=== PATIENT | female | born 1935 | race Caucasian/White ===

== ENCOUNTER 2018-12-22 11:00 | Inpatient (IN) ==
[2018-12-22] MEDS ORDERED: SODIUM CHLORIDE 0.9% 500 ML IV ONE (11:43)
[2018-12-22] MEDS ORDERED: ACETAMINOPHEN 1,000 MG/100 ML VIAL IV STA (11:43)
[2018-12-22 12:11] LABS: Basophils # (auto) 0.03 K/uL (0-0.2); Basophils % (auto) 0.2 %; Eosinophils # (auto) 0.08 K/uL (0-0.5); Eosinophils % (auto) 0.5 %; Hematocrit (blood only) 35.2 % (37-47); Hemoglobin 12.1 g/dL (12.0-16.0); Immature Granulocytes # (auto) 0.06 K/uL (0.00-0.02); Immature Granulocytes % (auto) 0.4 %; Lymphocytes # (auto) 0.89 K/uL (1.2-3.4); Lymphocytes % (auto) 6.1 %; Mean Corpuscular Hgb Conc 34.4 g/dL (32-36); Mean Corpuscular Volume 99.2 fL (80-100); Mean Platelet Volume 9.3 fL (7.4-10.4); Monocytes # (auto) 0.92 K/uL (0.11-0.59); Monocytes % (auto) 6.3 %; Neutrophils # (auto) 12.68 K/uL (1.4-6.5); Neutrophils % (auto) 86.5 %; Platelet Count 276 K/uL (130-400); RDW Coefficient of Variation 15.3 % (11.5-14.5); RDW Standard Deviation 55.6 fL (36.4-46.3); Red Blood Count 3.55 M/uL (4.2-5.4); White Blood Count 14.66 K/uL (4.8-10.8)
[2018-12-22 12:20] LABS: Prothrombin Time 10.1 Seconds (9.0-12.0)
[2018-12-22 12:27] LABS: Albumin Level 2.5 gm/dl (3.4-5.0); BUN Creatinine Ratio 46.1 (10-20); Calcium 7.5 mg/dl (8.5-10.1); Est GFR (African American) 45.5; Est GFR (Non-African American) 39.3; Potassium 2.9 mmol/L (3.5-5.1)
[2018-12-22 12:43] LABS: Albumin Globulin Ratio 0.6 (0.9-2); Bilirubin,Total 1.4 mg/dl (0.2-1); Globulin 4.4 gm/dl (2.5-4.0); Total Protein 6.9 gm/dl (6.4-8.2); Troponin I 0.052 ng/ml (0-0.045)
--- NOTE | 2018-12-22 12:45 | XRay Report ---
XR chest 1V portable CLINICAL HISTORY: Atypical chest pain COMPARISON STUDY: None FINDINGS: The heart is normal in size. There is no failure. There is no focal pulmonary consolidation . There are no pleural effusions. There are old left-sided rib fractures. There is no pneumothorax.[ IMPRESSION: No active disease in the chest. Electronically signed by: Dontrell Bladeras M.D. 12/22/2018 12:43 PM
[2018-12-22 12:53] LABS: Magnesium 2.6 mg/dl (1.8-2.4); Phosphorus 3.8 mg/dl (2.5-4.9)
--- NOTE | 2018-12-22 13:32 | CT Scan Report ---
CT head/brain wo con CLINICAL HISTORY: left sided weakness COMPARISON STUDY: No previous studies for comparison. TECHNIQUE: Axial CT of the brain is performed from the vertex to the skull base. IV contrast was not administered for this examination. A dose lowering technique was utilized adhering to the principles of ALARA. CT DOSE: 537.48 mGy.cm FINDINGS: No intra or extra-axial mass lesions are visualized. There is no CT evidence of acute cortical infarc tion. There is no evidence of midline shift. There is no acute hemorrhage. No calvarial fractures ar e visualized. There are extensive white matter hypodensities likely on a small vessel basis. There is an old deep w zule[place] matter right periventricular lacunar infarct. There is an old infarct in the right parietal vert ex. There is an old left posterior parietal lobe infarct. There is mild ventricular dilatation, finding which is felt to be secondary to volume loss There is no evidence of acute sinusitis IMPRESSION: 1. No acute intracranial findings 2. 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 12/22/2018 1:31 PM
--- NOTE | 2018-12-22 13:33 | XRay Report ---
XR pelvis 1-2V routine CLINICAL HISTORY: Bilateral hip pain COMPARISON: None. DISCUSSION: The bones are osteopenic. No acute fractures are visualized. There are mild degenerative changes present. No destructive lesions are visualized. There degenerative changes present within the lower lumbar spine. IMPRESSION: No acute fractures identified. Electronically signed by: Dontrell Balderas M.D. 12/22/2018 1:32 PM
[2018-12-22] MEDS ORDERED: POTASSIUM CHLORIDE / WTR 10 MEQ/100 ML PLCT IV STA (13:44)
--- NOTE | 2018-12-22 13:55 | Emergency Department Note ---
Entered by Charisse Mcallister acting as a scribe for Trace Turner MD History of Present Illness General Chief complaint: Pain (Generalized) Stated complaint: back & leg pain Time Seen by Provider: 12/22/18 11:04 Source: patient and other (ED nurse) Mode of arrival: EMS History of Present Illness Onset (ago): hour(s) (this morning) Location: back Pain Consistency: + other (episode) Exacerbated By: + movement Associated symptoms: + other (pain in arms and legs) The patient is a 83 year old female that is presenting to the Emergency Room with complaints of persistent back pain that started earlier today. The patient is reportedly seeking hospice care and lives with her daughter. She was brought to the ED via EMS. According to EMS, the patient had stroke-like symptoms yesterday with new onset left-sided weakness. EMS states that the patient was not brought to the ED at that time as she is self-imposed hospice. EMS reports that the patient started complaining of back, arm, and leg pain this morning and that the hospice nurse could not be reached. EMS notes that the patients daughter decided to take the patient to the ED at this time. EMS states that the patient was found in the basement at the house she is staying in and that it was difficult to get the patient out of her home. The patients ED nurse reports that the patient appeared unkempt upon her arrival to the ED. The nurse states that the patients diaper had not been changed in several days and that it appears that the patient had not been bathed in some time. Her nurse noted that the patients skin was red and purple on her left side and that it appeared that the patient had not been moved for a significant period of time. The patient reports that she has significant pain in her back and legs. She notes that she has difficulty moving her arms and legs. She states that she had a stroke around one month ago and denies any knowledge of stroke-like symptoms yesterday. The patient does not appear sure of why she is in hospice care. She states that she has a history of falls but denies any recent falls. The patient is able to state her current location and her name. Home Medications Home Medications Medication Instructions Recorded Confirmed Type carbidopa-levodopa 1 tab PO BID 12/22/18 12/22/18 History gabapentin 100 mg PO TID 12/22/18 12/22/18 History lorazepam 1 mg PO TID PRN 12/22/18 12/22/18 History tramadol 50 mg PO Q6H PRN 12/22/18 12/22/18 History Allergies Allergy/AdvReac Type Severity Reaction Status Date / Time Unable to Assess Allergy Unverified 12/22/18 12:43 Past Med/Surg History Medical History Celiac disease (Chronic) Parkinsons (Chronic) History of hysterectomy Surgical History Cataract extraction status Family History Other Family history unobtainable Social History Preferred Language: Dominican Communication Ability: Effective 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 and A total of 10 systems reviewed and were otherwise negative Physical Exam Vital Signs Vital Signs - 24 hr 12/22/18 11:00 12/22/18 11:56 12/22/18 12:00 Temperature 36.4 C L Temperature Source Oral Sepsis Recent Fever Within 48 Hours No Sepsis New/Unexplained Change in Mental Status No Sepsis Action Taken by Nursing No Action Required Pulse Rate 87 79 Pulse Rate [Finger] 87 82 Pulse Rate from SpO2 Sensor 79 Pulse Rhythm Regular Respiratory Rate 16 22 22 Respiratory Effort / Characteristics Non-Labored Spontaneous Non-Labored Spontaneous Respiratory Depth Normal Normal Respiratory Pattern Regular Regular Blood Pressure 124/70 156/81 H Blood Pressure [Right Arm] 124/70 156/81 H Blood Pressure Mean 88 106 Blood Pressure Mean [Right Arm] 88 106 Blood Pressure Position Lying Blood Pressure Position [Right Arm] Lying Lying Pulse Oximetry 94 95 95 Oxygen Delivery Method Room Air Room Air 12/22/18 12:10 12/22/18 12:30 12/22/18 12:33 Temperature Temperature Source Sepsis Recent Fever Within 48 Hours Sepsis New/Unexplained Change in Mental Status Sepsis Action Taken by Nursing Pulse Rate 80 79 Pulse Rate [Finger] 76 Pulse Rate from SpO2 Sensor 80 79 Pulse Rhythm Respiratory Rate 24 24 22 Respiratory Effort / Characteristics Non-Labored Spontaneous Respiratory Depth Normal Respiratory Pattern Regular Blood Pressure Blood Pressure [Right Arm] Blood Pressure Mean Blood Pressure Mean [Right Arm] Blood Pressure Position Blood Pressure Position [Right Arm] Pulse Oximetry 95 96 95 Oxygen Delivery Method Room Air 12/22/18 13:00 12/22/18 13:32 12/22/18 14:00 Temperature Temperature Source Sepsis Recent Fever Within 48 Hours Sepsis New/Unexplained Change in Mental Status Sepsis Action Taken by Nursing Pulse Rate Pulse Rate [Finger] 81 74 72 Pulse Rate from SpO2 Sensor Pulse Rhythm Respiratory Rate 22 20 20 Respiratory Effort / Characteristics Non-Labored Spontaneous Non-Labored Spontaneous Non-Labored Spontaneous Respiratory Depth Normal Normal Normal Respiratory Pattern Regular Regular Regular Blood Pressure Blood Pressure [Right Arm] 120/83 120/83 118/68 Blood Pressure Mean Blood Pressure Mean [Right Arm] 95 95 84 Blood Pressure Position Blood Pressure Position [Right Arm] Lying Lying Lying Pulse Oximetry 96 95 94 Oxygen Delivery Method Room Air Room Air Room Air GENERAL: Awake, alert, chronically ill-appearing, in no distress HENT: Normocephalic, atraumatic. Oropharynx with dry mucous membranes and otherwise unremarkable. EYES: Normal conjunctiva. Sclera non-icteric. EOMI. No nystamgus. PEARRL. NECK: Supple. No nuchal rigidity. FROM. No JVD. RESPIRATORY: Clear to auscultation bilaterally. CARDIAC: Regular rate, normal rhythm. Extremities warm and well perfused. Pulses equal. ABDOMEN: Soft, non-distended. No tenderness to palpation. No rebound or guarding. No masses. RECTAL: Deferred. MUSCULOSKELETAL: Chest examination reveals no tenderness. The back is symmetrical on inspection without obvious abnormality. No midline CTL spine ttp or step offs. There is no CVA tenderness to palpation. No joint edema or deformity. LOWER EXTREMITIES: Calves are equal size bilaterally and non-tender. No edema. No discoloration. NEURO: Normal sensorium. No sensory or motor deficits noted. 3/5 strength in left upper and left lower extremities. 4/5 strength in right upper and right lower extremities. SKIN: No rash or jaundice noted. Course 1129:The patient was evaluated in room C07. A complete history and physical examination was performed. 1300: I discussed the patients case with case management who stated that the patients daughter has been trying to get her mother signed up for [facility] despite not having a sufficient diagnosis from a provider. Case Management stated that the patient has not bene to see a provider in over 7 months. [facility] informed the daughter that they could not accept the patient into their care without a diagnosis and recommendation from a provider, and they recommended that the daughter schedule an appointment. [facility] stated that the daughter asked for pain medications for the patient, but they declined this request as the patient is not in their care. Case Management recommended that the patient be kept at the hospital for further evaluation and care as the patients daughter has been struggling to care for her mother. 1303: I discussed the patients case with the patients daughter (Arleth Norman, ) at this time over the phone regarding the patients recent medical course and her attempts to get the patient into hospice care. The patients daughter admittedly is poorly informed about the process. 1345: I reevaluated the patient at this time. She stated that she would like to limit her care but notes that she amenable to staying in the hospital to discuss possible retirement care options. 1351: I discussed the patient's case with Janna Montana, who will evaluate the patient for further management and care. Consultations Consultation #1: I discussed the patient's case with Janna Montana, who will evaluate the patient for further management and care. Time: 13:51 Administered Medications Gadobutrol (Gadavist 7.5ml) 6 ml IV ONCE PRN PRN Reason: Interaction Checking Stop: 12/26/18 17:27 Last Admin: 12/22/18 17:29 Dose: 6 ml Documented by: [id number] Potassium Chloride 40 meq/ (Sodium Chloride) 1,020 mls @ 100 mls/hr IV .[id number] BHARAT Stop: 12/23/18 12:28 Last Admin: 12/22/18 17:49 Dose: 100 mls/hr Documented by: [id number] Discontinued Medications Acetaminophen (Ofirmev) 1,000 mg in 100 mls @ 400 mls/hr IV NOW STA Stop: 12/22/18 11:57 Last Infusion: 12/22/18 12:10 Dose: 0 mls/hr Documented by: [id number] Admin: 12/22/18 11:59 Dose: 400 mls/hr Documented by: [id number] Sodium Chloride (Nss) 500 mls @ 999 mls/hr IV .[id number] ONE Stop: 12/22/18 12:13 Last Infusion: 12/22/18 12:30 Dose: 0 mls/hr Documented by: [id number] Admin: 12/22/18 11:59 Dose: 999 mls/hr Documented by: [id number] Potassium Chloride (K Toribio / Wtr) 10 meq in 100 mls @ 100 mls/hr IV NOW STA Stop: 12/22/18 14:43 Last Infusion: 12/22/18 15:27 Dose: 0 mls/hr Documented by: [id number] Admin: 12/22/18 14:27 Dose: 100 mls/hr Documented by: [id number] Potassium Chloride (K Toribio / Wtr) 10 meq in 100 mls @ 100 mls/hr IV Q1H BHARAT Stop: 12/22/18 19:04 Last Admin: 12/22/18 18:08 Dose: Not Given Documented by: [id number] Infusion: 12/22/18 18:07 Dose: 0 mls/hr Documented by: [id number] Admin: 12/22/18 17:50 Dose: 100 mls/hr Documented by: [id number] Medical Decision Making Differential Diagnosis Differential diagnosis: Etiologies such as metabolic, infection, hypo/hyperglycemia, electrolyte abnormalities, cardiac sources, intracerebral event, toxicologic, neurologic, as well as others were entertained. Medical Records Attestation: I reviewed the patient's medical records. Home Medications Current Medication List: was personally reviewed by me Laboratory Data Attestation: I reviewed the patient's lab results. Result diagrams: 12/22/18 12:02 12/22/18 12:02 Lab Results 12/22/18 12/22/18 12/22/18 Range/Units 12:02 12:02 12:02 WBC 14.66 H (4.8-10.8) K/uL RBC 3.55 L (4.2-5.4) M/uL Hgb 12.1 (12.0-16.0) g/dL Hct 35.2 L (37-47) % MCV 99.2 (80-100) fL MCH 34.1 H (25-34) pg MCHC 34.4 (32-36) g/dL RDW Std Deviation 55.6 H (36.4-46.3) fL RDW Coeff of Matilde 15.3 H (11.5-14.5) % Plt Count 276 (130-400) K/uL MPV 9.3 (7.4-10.4) fL Immature Gran % (Auto) 0.4 % Neut % (Auto) 86.5 % Lymph % (Auto) 6.1 % [place] % (Auto) 6.3 % Eos % (Auto) 0.5 % Baso % (Auto) 0.2 % Immature Gran # (Auto) 0.06 H (0.00-0.02) K/uL Neut # (Auto) 12.68 H (1.4-6.5) K/uL Lymph # (Auto) 0.89 L (1.2-3.4) K/uL [place] # (Auto) 0.92 H (0.11-0.59) K/uL Eos # (Auto) 0.08 (0-0.5) K/uL Baso # (Auto) 0.03 (0-0.2) K/uL PT 10.1 (9.0-12.0) Seconds INR 1.0 (0.9-1.1) Sodium 139 (136-145) mmol/L Potassium 2.9 L (3.5-5.1) mmol/L Chloride 100 (98-107) mmol/L Carbon Dioxide 29 (21-32) mmol/L Anion Gap 10.0 (3-11) BUN 59 H (7-18) mg/dl Creatinine 1.27 H (0.6-1.2) mg/dl Est Cr Clr Drug Dosing 32.0 ml/min Est GFR ( Amer) 45.5 Est GFR (Non-Af Amer) 39.3 BUN/Creatinine Ratio 46.1 H (10-20) Glucose 106 H (70-99) mg/dl Calcium 7.5 L (8.5-10.1) mg/dl Phosphorus (2.5-4.9) mg/dl Magnesium (1.8-2.4) mg/dl Total Bilirubin 1.4 H (0.2-1) mg/dl AST 23 (15-37) U/L ALT 13 (12-78) U/L Alkaline Phosphatase 42 L (45-117) U/L Total Creatine Kinase (26-192) U/L Troponin I 0.052 H* (0-0.045) ng/ml Total Protein 6.9 (6.4-8.2) gm/dl Albumin 2.5 L (3.4-5.0) gm/dl Globulin 4.4 H (2.5-4.0) gm/dl Albumin/Globulin Ratio 0.6 L (0.9-2) Lipase 382 (73-393) U/L 12/22/18 12/22/18 Range/Units 12:02 12:02 WBC (4.8-10.8) K/uL RBC (4.2-5.4) M/uL Hgb (12.0-16.0) g/dL Hct (37-47) % MCV (80-100) fL MCH (25-34) pg MCHC (32-36) g/dL RDW Std Deviation (36.4-46.3) fL RDW Coeff of Matilde (11.5-14.5) % Plt Count (130-400) K/uL MPV (7.4-10.4) fL Immature Gran % (Auto) % Neut % (Auto) % Lymph % (Auto) % [place] % (Auto) % Eos % (Auto) % Baso % (Auto) % Immature Gran # (Auto) (0.00-0.02) K/uL Neut # (Auto) (1.4-6.5) K/uL Lymph # (Auto) (1.2-3.4) K/uL [place] # (Auto) (0.11-0.59) K/uL Eos # (Auto) (0-0.5) K/uL Baso # (Auto) (0-0.2) K/uL PT (9.0-12.0) Seconds INR (0.9-1.1) Sodium (136-145) mmol/L Potassium (3.5-5.1) mmol/L Chloride (98-107) mmol/L Carbon Dioxide (21-32) mmol/L Anion Gap (3-11) BUN (7-18) mg/dl Creatinine (0.6-1.2) mg/dl Est Cr Clr Drug Dosing ml/min Est GFR ( Amer) Est GFR (Non-Af Amer) BUN/Creatinine Ratio (10-20) Glucose (70-99) mg/dl Calcium (8.5-10.1) mg/dl Phosphorus 3.8 (2.5-4.9) mg/dl Magnesium 2.6 H (1.8-2.4) mg/dl Total Bilirubin (0.2-1) mg/dl AST (15-37) U/L ALT (12-78) U/L Alkaline Phosphatase (45-117) U/L Total Creatine Kinase 138 (26-192) U/L Troponin I (0-0.045) ng/ml Total Protein (6.4-8.2) gm/dl Albumin (3.4-5.0) gm/dl Globulin (2.5-4.0) gm/dl Albumin/Globulin Ratio (0.9-2) Lipase (73-393) U/L Imaging Data Radiologist's Impression: Radiology results as stated below per my review and the radiologist's interpretation: XR chest 1V portable CLINICAL HISTORY: Atypical chest pain COMPARISON STUDY: None FINDINGS: The heart is normal in size. There is no failure. There is no focal pulmonary consolidation. There are no pleural effusions. There are old left- sided rib fractures. There is no pneumothorax.[ IMPRESSION: No active disease in the chest. Electronically signed by: Dontrell Balderas M.D. 12/22/2018 12:[address] head/brain wo con CLINICAL HISTORY: left sided weakness COMPARISON STUDY: No previous studies for comparison. TECHNIQUE: Axial CT of the brain is performed from the vertex to the skull base. IV contrast was not administered for this examination. A dose lowering technique was utilized adhering to the principles of ALARA. CT DOSE: 537.48 mGy.cm FINDINGS: No intra or extra-axial mass lesions are visualized. There is no CT evidence of acute cortical infarction. There is no evidence of midline shift. There is no acute hemorrhage. No calvarial fractures are visualized. There are extensive white matter hypodensities likely on a small vessel basis. There is an old deep white matter right periventricular lacunar infarct. There is an old infarct in the right parietal vertex. There is an old left posterior parietal lobe infarct. There is mild ventricular dilatation, finding which is felt to be secondary to volume loss There is no evidence of acute sinusitis IMPRESSION: 1. No acute intracranial findings 2. 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 12/22/2018 1:31 PM XR pelvis 1-2V routine CLINICAL HISTORY: Bilateral hip pain COMPARISON: None. DISCUSSION: The bones are osteopenic. No acute fractures are visualized. There are mild degenerative changes present. No destructive lesions are visualized. There degenerative changes present within the lower lumbar spine. IMPRESSION: No acute fractures identified. Electronically signed by: Dontrell Balderas M.D. 12/22/2018 1:32 PM ECG Data Attestation: I personally reviewed and interpreted this ECG as follows: Indication: back/shoulder pain Rate (beats per minute): 82 Rhythm: normal sinus Findings: + other (LVH with repolarization abnormality); no ST depression, no ST elevation and no acute ischemic change Comparison ECG Date: no prior available Blood Pressure Blood Pressure Findings: Normal blood pressure MDM Narrative The patient is a pleasant 83-year-old woman with a past medical history of Parkinson's who presents emergency department via ambulance from home after being called to the patient's home for worsening diffuse body pain which occurs in the setting of having recent stroke like episode with subsequent residual left-sided weakness 2 days ago per hpi. Thus, given sx occurred 2 days ago, no indication for stroke alert at this time. Of note, the patient's presentation occurs in the setting of the patient's daughter attempting to have her in enrolled into hospice care as the daughter reports that the patient, over the last 6 months, has decided she does not not want any invasive treatments. Our assistant case manager did discuss the patient's care with [facility] and they reported that the patient's daughter did in fact contact them to help arrange hospice care however they report that they did inform the daughter that the patient would require a medical evaluation to confirm a diagnosis to help inform whether the patient meets criteria for hospice care. On arrival the patient is chronic ill-appearing but no acute distress, afebrile stable vital signs. On exam the patient does exhibit left-sided paresis of left upper and left lower extremity when compared to the right. She has a mild left-sided facial droop as well. EKG demonstrates LVH with repolarization abnormality but no overt acute ischemia. Chest x-ray negative for acute process. CT the head demonstrates severe white matter disease and old bilateral cortical infarcts. Plain film of the pelvis negative for acute fracture. WBC 14.6, nonspecific. H/H 12.1/35.2 without prior values for comparison. Platelets within normal limits. Potassium 2.9 with repletion provided. Creatinine 1.27 and BUN 59 without prior values for comparison. Patient's troponin is mildly elevated at 0.05. Lipase within normal limits. UA pending as patient had soiled herself upon arrival. Upon further discussion with the patient's daughter, she admitted that she was not informed regarding the process of hospice. She further admits that she is unable to care for her mother in the her current state but would be open to having her there with regular nursing care if possible. However she adn the patient are agreeable for admission for further clarification of the patient's current medical status and palliative care consultation/goals of care discussion. Case was discussed with Dr. Lira, [facility] hospitalist, who evaluate the patient for admission. Impression & Plan Stroke-like symptoms, Hypokalemia, Dehydration, Failure to thrive Discharge Plan Visit Data *Final* Discharge Date/Time: 12/22/18 15:41 Chief Complaint: Pain (Generalized) Stated Complaint: back & leg pain ED Provider: Trace Turner Discharge Problem: Stroke-like symptoms, Hypokalemia, Dehydration, Failure to thrive Patient Disposition: Admitted As Inpatient Discharge Instructions Interventions: ED Discharge Assessment Last Done: 12/22/18 15:41 Discharge Problem: Failure to thrive Qualifiers: Failure to thrive age range: in adult Qualified Code(s): R62.7 - Adult failure to thrive The scribe's documentation has been prepared under my direction and personally reviewed by me in its entirety. I confirm that the note above accurately reflects all work, treatment, procedures, and medical decision making performed by me.
--- NOTE | 2018-12-22 14:35 | Communication Note ---
Date of Service: December 22, 2018 83 yo F with h/o Parkinson's and reported h/o celiac disease presents via EMS. Chief complaint was back, arm and leg pain with h/o acute onset of L sided weakness within the last couple of days. Per daughter who I was able to reach later, she had moved the patient up to [place] from [place]. In the last 1.5 years she had approx 6 TIA episodes, some were strokes with residual deficits including two weeks ago where she developed a contracture of her R hand, and then most recently, in the last few days, she developed acute LUQ weakness. Daughter reports that she was not going with mom to PCP visits, and doesn't know why she was never worked up for underlying atrial fibrillation or given secondary prophylaxis such as ASA, Plavix or statin therapy. She states that shortly after mom moved to her house in Jun 2018, she became more weak and eventually bedbound by August 2018. Daughter has been caring for her and an autistic son with seizure disorder. She states that after this last "stroke" she was unable to care for mom anymore and her pain was so severe that she reached out to [facility] for help and pain management options, but they dir ected her to see a doctor first, which was what prompted the ER visit today. Daughter describes the episode a couple of days ago where her mom started having full body convulsions for an uncertain amount of time when she was awakening from sleep in the morning. She was unable to communicate with her mom, and states that when the convulsions were done, mom (the patient) was not lucid and just fell back asleep until later that evening. Daughter states that around this event for a few days, mom was very somnolent which was unlike her. The patient is unable to give an accurate detail of events. She is alert and responding appropriately, and is oriented to self, place but not time. She cannot tell me why she is here today, and doesn't know where she is from. She states she is from "here" but has medical bottles on her that are outdated and from [place]. She cannot remember having a stroke. She is very weak and malodorous. Per the ER nurse her backside has extensive redness with no open wounds noted. She is able to follow instructions, and has no ability to move the LUE with only very little active movement of the LLE. Passive ROM is also limited in all extremities but is easier to perform on the R side. Lungs are CTAB and she denies any cough or other respiratory symptoms recently. There is a 3/6 ESTELLA heard across her precordium for which she says she has known about and is chronic. She winces in pain when the BP cuff takes a measurement and appears to be in pain with little movement. She overall appears weak and disabled. She has a history of using Sinemet but only PRN for restless legs syndrome per her daughter. She is a severe celiac with strict gluten free diet. Otherwise, her medical history is unclear. She was seen in the ER at [facility] in May 2018 per daughter, and was told something about having a heart condition, but the daughter cannot elaborate. Records from here and PCP office (Dr. Ambrose in [place]) have been requested. Assessment: stroke-like symptoms with h/o CVD, hypokalemia, memory loss, acute pain possibly related to pressure-induced skin erythema on back. MRI brain negative for acute IC abnormality, carotid us with no HD significant stenosis. Cont with monitoring on telemetry for occult arrhythmia, consult with Neurology, PT/OT and Speech, and perform echo in am. Appreciate Case Management assistance with placement options and Palliative to help us identify treatment goals. DO Pankaj
--- NOTE | 2018-12-22 15:06 | History & Physical Report ---
Date of Service December 22, 2018 Assessment & Plan (1) Left-sided weakness: -admit to tele -patient presenting from home with left sided weakness that reportedly developed a few days ago -patient currently living at home with daughter who has been trying to place her in hospice - attempted to reach daughter to discuss however unsuccessful -will complete work up for possible CVA - MRI, carotid dopplers, echo -neuro checks -NPO until swallow eval completed -neuro consult, input appreciated -palliative care eval for goals of care discussion / hospice eval (2) Hypokalemia: -K+ 2.9 -replace, follow eletrolytes -Mg+ WNL (3) Leukocytosis: -WBC 14K -no obvious sources of infection at this time; awaiting UA -does not appear septic (4) Abnormal renal function: -creat 1.2 -unknown baseline -monitor renal functions (5) Parkinsons: -resume carbidopa/levadopa once taking PO (6) DVT prophylaxis: -SQ Lovenox History of Present Illness Chief Complaint: Weakness Primary Care Provider: YOLANDA TRACEY 83 year old female who presents to the ED with weakness. Patient is currently in the ED alone. According to ED documentation, patient lives with her daughter in the basement. A few days ago, patient developed stroke like symptoms with left sided weakness. An attempt was made to place the patient on hospice however that was unsuccessful. Nursing reports that when patient arrived to the ED, she was disheveled and was soiled. She had a diaper on that appeared to be days old. Patient is somewhat of a poor historian. She is mostly without complaint. She is unsure why she came to the hospital today. In the ED, CT head is negative for acute findings. K+ is 2.9, WBC 14K, creat 1.2, trop 0.052. EKG is without aute ST changes. Patient was given IVF, IV Tylenol, and potassium replacement. Dr. Lira attempted to call patient's daughter however was unable to reach her. Allergies Allergy/AdvReac Type Severity Reaction Status Date / Time Tetracyclines Allergy Unknown Verified 12/22/18 19:02 Home Medications Home Medications Medication Instructions Recorded Confirmed Type Calcium 600 + D(3) 1 ea PO BID 12/22/18 12/22/18 History acetaminophen 500 mg PO BID PRN 12/22/18 12/22/18 History amlodipine 2.5 mg PO DAILY 12/22/18 12/22/18 History carbidopa-levodopa 1 tab PO BID 12/22/18 12/22/18 History gabapentin 100 mg PO TID 12/22/18 12/22/18 History levothyroxine [Synthroid] 88 mcg PO DAILY 12/22/18 12/22/18 History lorazepam 1 mg PO TID PRN 12/22/18 12/22/18 History magnesium oxide 500 mg PO DAILY 12/22/18 12/22/18 History tramadol 50 mg PO Q6H PRN 12/22/18 12/22/18 History Past Med/Surg History Medical History Celiac disease (Chronic) Parkinsons (Chronic) History of hysterectomy Surgical History Cataract extraction status Family History Other Family history unobtainable Social History Preferred Language: Turkish Communication Ability: Effective [employer] Required: No Beliefs That Will Affect Care: None and Anabaptism Anabaptism Beliefs: Protestant marital status: / Current Living Situation: Family Current Living Situation Comment: hospice current occupational status: retired Other Information That Helps Us Care for You: No Feels Safe at Home: Yes and Hesitant to Answer Smoking Status: Never smoker Do You Dip or Chew Tobacco: No ; Second Hand Exposure: No ; Hx Alcohol Use: Yes Alcohol type: wine Hx Substance Use: No Review of Systems Review of Systems: Reviewed with patient as noted in HPI however likely unreliable due to underlying cognitive status. Physical Exam Physical Exam: Please refer to Dr. Lira's addendum for physical exam. Results & Data Vital Signs (Past 12 Hours) Vital Signs Temp Pulse Pulse Resp BP BP Pulse Ox 12/22/18 14:28 79 20 143/83 H 95 12/22/18 14:00 72 20 118/68 94 12/22/18 13:32 74 20 120/83 95 12/22/18 13:00 81 22 120/83 96 12/22/18 12:33 76 22 95 12/22/18 12:30 79 24 96 12/22/18 12:10 80 24 95 12/22/18 12:00 79 22 156/81 H 95 12/22/18 11:56 82 22 156/81 H 95 12/22/18 11:00 36.4 C L 87 87 16 124/70 124/70 94 Laboratory Results Short CBC 12/22/18 Range/Units 12:02 WBC 14.66 H (4.8-10.8) K/uL Hgb 12.1 (12.0-16.0) g/dL Hct 35.2 L (37-47) % Plt Count 276 (130-400) K/uL BMP 12/22/18 12:02 Sodium 139 Potassium 2.9 L Chloride 100 Carbon Dioxide 29 BUN 59 H Creatinine 1.27 H Glucose 106 H Calcium 7.5 L Cardiac Enzymes 12/22/18 12/22/18 Range/Units 12:02 12:02 Total Creatine Kinase 138 (26-192) U/L Troponin I 0.052 H* (0-0.045) ng/ml Liver Function 12/22/18 Range/Units 12:02 Total Bilirubin 1.4 H (0.2-1) mg/dl AST 23 (15-37) U/L ALT 13 (12-78) U/L Alkaline Phosphatase 42 L (45-117) U/L Albumin 2.5 L (3.4-5.0) gm/dl Diagnostic Findings CXR IMPRESSION: No active disease in the chest. HEAD CT IMPRESSION: 1. No acute intracranial findings 2. 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 Code Status & VTE Plan Code Status Patient is a DNR as per Dr. Lira's discussion with the patient. VTE Prophylaxis Plan VTE Prophylaxis will be ordered: Yes Supervising Physician Co-Signing Physician Notes 83 yo F with h/o Parkinson's and reported h/o celiac disease presents via EMS. Chief complaint was back, arm and leg pain with h/o acute onset of L sided weakness within the last couple of days. Per daughter who I was able to reach later, she had moved the patient up to [place] from [place]. In the last 1.5 years she had approx 6 TIA episodes, some were strokes with residual deficits including two weeks ago where she developed a contracture of her R hand, and then most recently, in the last few days, she developed acute LUQ weakness. Daughter reports that she was not going with mom to PCP visits, and doesn't know why she was never worked up for underlying atrial fibrillation or given secondary prophylaxis such as ASA, Plavix or statin therapy. She states that shortly after mom moved to her house in Jun 2018, she became more weak and eventually bedbound by August 2018. Daughter has been caring for her and an autistic son with seizure disorder. She states that after this last "stroke" she was unable to care for mom anymore and her pain was so severe that she reached out to [facility] for help and pain management options, but they directed her to see a doctor first, which was what prompted the ER visit today. Daughter describes the episode a couple of days ago where her mom started having full body convulsions for an uncertain amount of time when she was awakening from sleep in the morning. She was unable to communicate with her mom, and states that when the convulsions were done, mom (the patient) was not lucid and just fell back asleep until later that evening. Daughter states that around this event for a few days, mom was very somnolent which was unlike her. The patient is unable to give an accurate detail of events. She is alert and responding appropriately, and is oriented to self, place but not time. She cannot tell me why she is here today, and doesn't know where she is from. She states she is from "here" but has medical bottles on her that are outdated and from [place]. She knows her PCP to be "Dr Halie ([place])." She cannot remember having a stroke. She is very weak and malodorous. Per the ER nurse her backside has extensive redness with no open wounds noted. She is able to follow instructions, and has no ability to move the LUE with only very little active movement of the LLE. Passive ROM is also limited in all extremities but is easier to perform on the R side. Lungs are CTAB and she denies any cough or other respiratory symptoms recently. There is a 3/6 ESTELLA heard across her precordium for which she says she has known about and is chronic. She winces in pain when the BP cuff takes a measurement and appears to be in pain with little movement. She overall appears weak and disabled. She has a history of using Sinemet but only PRN for restless legs syndrome per her daughter. She is a severe celiac with strict gluten free diet. Otherwise, her medical history is unclear. She was seen in the ER at [facility] in May 2018 per daughter, and was told something about having a heart condition, but the daughter cannot elaborate. Records from here and PCP office (Dr. Ambrose in [place]) have been requested. Assessment: stroke-like symptoms with h/o CVD, hypokalemia, memory loss, acute pain possibly related to pressure-induced skin erythema on back. MRI brain negative for acute IC abnormality, carotid us with no HD significant stenosis. Cont with monitoring on telemetry for occult arrhythmia, consult with Neurology, PT/OT and Speech, and perform echo in am. Appreciate Case Management assistance with placement options and Palliative to help us identify treatment goals. DO Pankaj
[2018-12-22] MEDS ORDERED: PHARMACIST DISCHARGE MED REC CONSULT PRN (16:05)
[2018-12-22] MEDS ORDERED: POTASSIUM CHLORIDE 40 MEQ in SODIUM CHLORIDE 0.9% 1000ML 1,000 ML IV SCH (16:05)
[2018-12-22] MEDS ORDERED: LORazepam 0.5 MG/1 ML VIAL IV PRN (16:05)
--- NOTE | 2018-12-22 17:25 | Ultrasound Report ---
ULTRASOUND OF THE CAROTID ARTERIES CLINICAL HISTORY: left sided weakness COMPARISON STUDY: None. TECHNIQUE: Real-time, grayscale, and color Doppler sonography of the carotid arteries was performed. Imaging reviewed in the transverse and longitudinal planes. NASCET criteria was utilized for stenosis calcification. FINDINGS: There is mild to moderate atherosclerotic plaque present . The peak systolic velocity within the right internal carotid artery is 61 cm/sec. The systolic velocity ratio of right internal to common carotid artery is 1.1. The peak systolic velocity within the left internal carotid artery is 66 cm/sec. The systolic velocity ratio left internal to common carotid artery is 1.2. Antegrade flow is seen in the vertebral arteries. The external carotid arteries are patent. Blood pressure in the right arm measured 127 mm/Hg. Blood pressure in the left arm measured 138 mm/H g. IMPRESSION: No evidence of hemodynamically significant carotid stenosis. Electronically signed by: Dontrell Balderas M.D. 12/22/2018 5:23 PM
[2018-12-22] MEDS ORDERED: GADOBUTROL 7.5ML VIAL IV PRN (17:28)
[2018-12-22] MEDS: POTASSIUM CHLORIDE / WTR 10 MEQ/100 ML PLCT IV SCH ×2 (17:50→18:08)
--- NOTE | 2018-12-22 17:51 | Magnetic Resonance Report ---
MRI OF THE BRAIN WITHOUT AND WITH IV CONTRAST CLINICAL HISTORY: left sided weakness POSSIBLE STROKE COMPARISON STUDY: Noncontrast head CT performed the same day TECHNIQUE: MRI of the brain was performed from the vertex to the skull base utilizing various T1 and T2 weighted sequences. Following the IV administration of 6 mL of Gadavist contrast, additional enhan pamela images were obtained. FINDINGS: Sagittal T1, axial diffusion, proton density and T2 weighted axial, coronal FLAIR, and pre and post a xial T1-weighted images were acquired. These were supplemented with post gadolinium coronal T1 weight ed images. No intra or extra-axial mass lesions are visualized. Axial diffusion-weighted images reveal no evidence of acute or subacute infarction. There is a focus of T2 shine through within the right posterior parietal lobe. A punctate focus of increased signal wi thin the right lateral cerebellar hemisphere is likely artifactual. There is mild ventricular prominence, likely secondary to volume loss. Proton density T2-weighted and FLAIR images reveal extensive foci of abnormal T2 signal within the wh ite matter, likely on a small vessel basis. There is an old left occipital lobe infarct. There is an old right parietal lobe infarct. There is a right sesay radiata deep white matter infarct. There are no abnormal flow voids. There is no evidence of pathologic enhancement. IMPRESSION: 1. No acute intracranial findings 2. No evidence of acute or subacute infarction 3. Extensive small vessel disease 4. 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 12/22/2018 5:50 PM
[2018-12-22] MEDS ORDERED: POTASSIUM CHLORIDE 20 MEQ/15 ML UDC PO ONE ×2 (18:15→23:00)
[2018-12-22 18:53] LABS: Appearance Urine Clear (Clear); Bacteria Urine Automated Negative (Negative); Bilirubin Urine Negative (Negative); Blood Urine 1+ (Negative); Color Urine Yellow; Glucose Urine UA Negative (Negative); Ketones Urine 1+ (Negative); Leukocyte Esterase Urine Negative (Negative); Nitrite Urine Negative (Negative); Protein Urine Trace (Negative); Specific Gravity Urine 1.024 (1.000-1.030); Urobilinogen Urine Negative (Negative)
[2018-12-22] MEDS ORDERED: LORazepam 0.5 MG TAB PO PRN (18:58)
[2018-12-22] MEDS: ENOXAPARIN INJ 40 MG/0.4 ML SYR SQ SCH (19:47)
[2018-12-22] MEDS: GABAPENTIN 100 MG CAP PO SCH (19:48)
[2018-12-22] MEDS: SODIUM CHLORIDE 0.9% 1000ML 1,000 ML IV SCH (19:49)
[2018-12-22] MEDS: CALCIUM 600MG + VIT D 400 IU TAB PO SCH (23:15)
[2018-12-23] MEDS: LEVOTHYROXINE SODIUM 88 MCG TABLET PO SCH (05:49)
[2018-12-23 06:18] LABS: Basophils # (auto) 0.02 K/uL (0-0.2); Basophils % (auto) 0.2 %; Eosinophils % (auto) 0.8 %; Hemoglobin 11.4 g/dL (12.0-16.0); Immature Granulocytes # (auto) 0.05 K/uL (0.00-0.02); Immature Granulocytes % (auto) 0.4 %; Lymphocytes # (auto) 0.92 K/uL (1.2-3.4); Lymphocytes % (auto) 7.5 %; Mean Corpuscular Hgb Conc 32.6 g/dL (32-36); Mean Platelet Volume 9.8 fL (7.4-10.4); Monocytes # (auto) 1.03 K/uL (0.11-0.59); Monocytes % (auto) 8.4 %; Neutrophils # (auto) 10.08 K/uL (1.4-6.5); Neutrophils % (auto) 82.7 %; Platelet Count 261 K/uL (130-400); RDW Coefficient of Variation 15.2 % (11.5-14.5); RDW Standard Deviation 55.3 fL (36.4-46.3)
[2018-12-23 06:58] LABS: BUN Creatinine Ratio 48.5 (10-20); Calcium 7.2 mg/dl (8.5-10.1); Creatinine Clr Calc Pharmacy 44.1 ml/min; Est GFR (African American) 67.2
[2018-12-23] MEDS: TRAMADOL HCL 50 MG TABLET PO PRN ×2 (07:58→18:12)
[2018-12-23] MEDS: CALCIUM 600MG + VIT D 400 IU TAB PO SCH ×2 (07:59→19:49)
[2018-12-23] MEDS: GABAPENTIN 100 MG CAP PO SCH ×3 (08:01→19:49)
[2018-12-23] MEDS: SODIUM CHLORIDE 0.9% 1000ML 1,000 ML IV SCH (08:27)
[2018-12-23] MEDS ORDERED: AMLODIPINE BESYLATE 5 MG TAB PO SCH (09:00)
--- NOTE | 2018-12-23 09:57 | XRay Report ---
XR humerus LT 2V CLINICAL HISTORY: r/o fracture trauma COMPARISON: None. DISCUSSION: The bones and joint spaces appear intact. There is no evidence of fracture, dislocation o r bony disease. There is no evidence for soft tissue swelling. Moderate generalized degenerative archer ge. Old healed fractures left seventh and eighth ribs. Nondisplaced cortical fracture left ninth rib. IMPRESSION: 1. Degenerative change. 2. Nondisplaced cortical fracture left ninth rib. 3. No acute abnormality of the left humerus. The above report was generated using voice recognition software. It may contain grammatical, syntax or spelling errors. Electronically signed by: Jairo Cruz M.D. 12/23/2018 9:55 AM
--- NOTE | 2018-12-23 09:58 | XRay Report ---
XR humerus RT 2V CLINICAL HISTORY: r/o fracture trauma. Pain. COMPARISON: None. DISCUSSION: The bones and joint spaces appear intact. There is no evidence of fracture, dislocation o r bony disease. There is no evidence for soft tissue swelling. IMPRESSION: Negative study. The above report was generated using voice recognition software. It may contain grammatical, syntax or spelling errors. Electronically signed by: Jairo Cruz M.D. 12/23/2018 9:56 AM
--- NOTE | 2018-12-23 09:59 | XRay Report ---
XR shoulder LT min 2V routine CLINICAL HISTORY: r/o fracture trauma COMPARISON: None. DISCUSSION: The bones and joint spaces appear intact. There is no evidence of fracture, dislocation o r bony disease. Moderate generalized degenerative change IMPRESSION: No acute process. Moderate degenerative change. The above report was generated using voice recognition software. It may contain grammatical, syntax or spelling errors. Electronically signed by: Jairo Cruz M.D. 12/23/2018 9:57 AM
--- NOTE | 2018-12-23 10:00 | XRay Report ---
XR lumbar spine 2-3V CLINICAL HISTORY: back pain r/o fracture trauma. Pain. COMPARISON STUDY: No previous studies for comparison. FINDINGS: Generalized degenerative change. Grade 1 anterolisthesis L4 and L5. Slight concavity superior endplate L4 considered nonacute. IMPRESSION: Degenerative change. Mild wedge deformity superior endplate L4 considered old. The above report was generated using voice recognition software. It may contain grammatical, syntax or spelling errors. Electronically signed by: Jairo Cruz M.D. 12/23/2018 9:59 AM
--- NOTE | 2018-12-23 10:01 | XRay Report ---
XR shoulder RT min 2V routine CLINICAL HISTORY: r/o fracture trauma. Pain. COMPARISON: None. DISCUSSION: The bones and joint spaces appear intact. There is no evidence of fracture, dislocation o r bony disease. Moderate generalized degenerative change IMPRESSION: No acute process. Moderate generalized degenerative change. The above report was generated using voice recognition software. It may contain grammatical, syntax or spelling errors. Electronically signed by: Jairo Cruz M.D. 12/23/2018 10:00 AM
--- NOTE | 2018-12-23 10:55 | Hospitalist Progress Note ---
Date of Service December 23, 2018 Assessment & Plan (1) Left-sided weakness: LEFT SIDED WEAKNESS, ACUTE CVA RULED OUT Brain MRI: 1. No acute intracranial findings 2. No evidence of acute or subacute infarction 3. Extensive small vessel disease 4. 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 from Parkinson? continue Sinemet Neurology consulted PT/OT eval xrays of the shoulder and humerus: negative OLD CORTICAL INFARCTS will need ASA, Lipitor LEFT RIB FRACTURE Nondisplaced cortical fracture left ninth rib Incentive spirometry PRN analgesics PARKINSON DISEASE management as per #1 HYPERTENSION BP on the lower side HOLD Amlodipine DVT Prophylaxis SCDs DNR Disposition pending will need to transition to SNF (2) Parkinsons: -resume carbidopa/levadopa once taking PO Subjective ff up for stroke like symptoms seen resting in bed, comfortable appears somewhat weak alert, oriented x2, answers all questions appropriately reports lower back pain, BL shoulder pain denies focal weakness/numbness or any other new neurologic symptom no chest pain, dyspnea, palpitations, nausea/vomiting no other symptoms Review of Systems Review of Systems: All systems reviewed & are unremarkable except as noted in HPI & below Physical Exam Physical Exam: General- oriented x 2, not in distress, speaks in sentences with no effort or accessory muscle use Head- atraumatic Eyes- PERRL, EOMI, anicteric ENT- oropharynx clear Neck- supple, no JVD, no adenopathy, no thyromegaly; carotids +2/2, no bruits appreciated Lungs- clear to auscultation bilaterally, no rales/wheezes Heart- normal rate, regular rhythm; no murmur, no gallop, no rub appreciated Abdomen- normal bowel sounds, nondistended, soft, nontender, no masses or hepatosplenomegaly Extremities- shoulders- no edema/erythema/tenderness/warmth, poor ROM due to pain R>L no pretibial edema, no calf tenderness; peripheral pulses intact Back- mild tenderness, lower back- no erythema/edema/hematoma Neuro- alert, oriented x 2; CN 2-12 grossly intact; motor 4/5 right, 3/5 left;sensation 100% on all extremities; no other gross focal neurologic deficits Skin- warm & dry Results & Data Vital Signs (Past 12 Hours) Vital Signs Temp Pulse Resp BP BP Pulse Ox 12/23/18 07:20 36.8 C 84 16 115/68 95 12/23/18 05:09 36.8 C 88 20 106/61 94 12/23/18 00:16 37 C 84 22 132/65 98 Laboratory Results Laboratory Results - last 24 hr 12/22/18 12/22/18 12/22/18 12:02 12:02 12:02 WBC 14.66 H RBC 3.55 L Hgb 12.1 Hct 35.2 L MCV 99.2 MCH 34.1 H MCHC 34.4 RDW Std Deviation 55.6 H RDW Coeff of Matilde 15.3 H Plt Count 276 MPV 9.3 Immature Gran % (Auto) 0.4 Neut % (Auto) 86.5 Lymph % (Auto) 6.1 Mccreary % (Auto) 6.3 Eos % (Auto) 0.5 Baso % (Auto) 0.2 Immature Gran # (Auto) 0.06 H Neut # (Auto) 12.68 H Lymph # (Auto) 0.89 L Mccreary # (Auto) 0.92 H Eos # (Auto) 0.08 Baso # (Auto) 0.03 PT 10.1 INR 1.0 Sodium 139 Potassium 2.9 L Chloride 100 Carbon Dioxide 29 Anion Gap 10.0 BUN 59 H Creatinine 1.27 H Est Cr Clr Drug Dosing 32.0 Est GFR ( Amer) 45.5 Est GFR (Non-Af Amer) 39.3 BUN/Creatinine Ratio 46.1 H Glucose 106 H Estimat Average Glucose Hemoglobin A1c Calcium 7.5 L Phosphorus Magnesium Total Bilirubin 1.4 H AST 23 ALT 13 Alkaline Phosphatase 42 L Total Creatine Kinase Troponin I 0.052 H* Total Protein 6.9 Albumin 2.5 L Globulin 4.4 H Albumin/Globulin Ratio 0.6 L Triglycerides Cholesterol LDL Cholesterol, Calc VLDL Cholesterol, Calc HDL Cholesterol Cholesterol/HDL Ratio Lipase 382 Urine Color Urine Appearance Urine pH Ur Specific Amboy Urine Protein Urine Glucose (UA) Urine Ketones Urine Blood Urine Nitrite Urine Bilirubin Urine Urobilinogen Ur Leukocyte Esterase Urine WBC (Auto) Urine RBC (Auto) U Hyaline Cast (Auto) U Epithel Cells (Auto) Urine Bacteria (Auto) Granular Casts 12/22/18 12/22/18 12/22/18 12:02 12:02 12:02 WBC RBC Hgb Hct MCV MCH MCHC RDW Std Deviation RDW Coeff of Matilde Plt Count MPV Immature Gran % (Auto) Neut % (Auto) Lymph % (Auto) Mccreary % (Auto) Eos % (Auto) Baso % (Auto) Immature Gran # (Auto) Neut # (Auto) Lymph # (Auto) Mccreary # (Auto) Eos # (Auto) Baso # (Auto) PT INR Sodium Potassium Chloride Carbon Dioxide Anion Gap BUN Creatinine Est Cr Clr Drug Dosing Est GFR ( Amer) Est GFR (Non-Af Amer) BUN/Creatinine Ratio Glucose Estimat Average Glucose Pending Hemoglobin A1c Pending Calcium Phosphorus 3.8 Magnesium 2.6 H Total Bilirubin AST ALT Alkaline Phosphatase Total Creatine Kinase 138 Troponin I Total Protein Albumin Globulin Albumin/Globulin Ratio Triglycerides Cholesterol LDL Cholesterol, Calc VLDL Cholesterol, Calc HDL Cholesterol Cholesterol/HDL Ratio Lipase Urine Color Urine Appearance Urine pH Ur Specific Amboy Urine Protein Urine Glucose (UA) Urine Ketones Urine Blood Urine Nitrite Urine Bilirubin Urine Urobilinogen Ur Leukocyte Esterase Urine WBC (Auto) Urine RBC (Auto) U Hyaline Cast (Auto) U Epithel Cells (Auto) Urine Bacteria (Auto) Granular Casts 12/22/18 12/22/18 12/23/18 18:02 18:30 00:25 WBC RBC Hgb Hct MCV MCH MCHC RDW Std Deviation RDW Coeff of Matilde Plt Count MPV Immature Gran % (Auto) Neut % (Auto) Lymph % (Auto) Mccreary % (Auto) Eos % (Auto) Baso % (Auto) Immature Gran # (Auto) Neut # (Auto) Lymph # (Auto) Mccreary # (Auto) Eos # (Auto) Baso # (Auto) PT INR Sodium Potassium Chloride Carbon Dioxide Anion Gap BUN Creatinine Est Cr Clr Drug Dosing Est GFR ( Amer) Est GFR (Non-Af Amer) BUN/Creatinine Ratio Glucose Estimat Average Glucose Hemoglobin A1c Calcium Phosphorus Magnesium Total Bilirubin AST ALT Alkaline Phosphatase Total Creatine Kinase Troponin I 0.036 0.023 Total Protein Albumin Globulin Albumin/Globulin Ratio Triglycerides Cholesterol LDL Cholesterol, Calc VLDL Cholesterol, Calc HDL Cholesterol Cholesterol/HDL Ratio Lipase Urine Color Yellow Urine Appearance Clear Urine pH 5.0 Ur Specific Amb[place] 1.024 Urine Protein Trace H Urine Glucose (UA) Negative Urine Ketones 1+ H Urine Blood 1+ H Urine Nitrite Negative Urine Bilirubin Negative Urine Urobilinogen Negative Ur Leukocyte Esterase Negative Urine WBC (Auto) 1-5 Urine RBC (Auto) 5-10 H U Hyaline Cast (Auto) 1-5 U Epithel Cells (Auto) 10-20 H Urine Bacteria (Auto) Negative Granular Casts 1-5 H 12/23/18 12/23/18 05:31 05:31 WBC 12.20 H RBC 3.50 L Hgb 11.4 L Hct 35.0 L MCV 100.0 MCH 32.6 MCHC 32.6 RDW Std Deviation 55.3 H RDW Coeff of Matilde 15.2 H Plt Count 261 MPV 9.8 Immature Gran % (Auto) 0.4 Neut % (Auto) 82.7 Lymph % (Auto) 7.5 Mccreary % (Auto) 8.4 Eos % (Auto) 0.8 Baso % (Auto) 0.2 Immature Gran # (Auto) 0.05 H Neut # (Auto) 10.08 H Lymph # (Auto) 0.92 L Mccreary # (Auto) 1.03 H Eos # (Auto) 0.10 Baso # (Auto) 0.02 PT INR Sodium 138 Potassium 4.0 D Chloride 104 Carbon Dioxide 27 Anion Gap 7.0 BUN 45 H Creatinine 0.92 D Est Cr Clr Drug Dosing 44.1 Est GFR ( Amer) 67.2 Est GFR (Non-Af Amer) 58.0 BUN/Creatinine Ratio 48.5 H Glucose 93 Estimat Average Glucose Hemoglobin A1c Calcium 7.2 L Phosphorus Magnesium Total Bilirubin AST ALT Alkaline Phosphatase Total Creatine Kinase Troponin I Total Protein Albumin Globulin Albumin/Globulin Ratio Triglycerides 152 H Cholesterol 188 LDL Cholesterol, Calc 114 VLDL Cholesterol, Calc 30 HDL Cholesterol 44 Cholesterol/HDL Ratio 4 Lipase Urine Color Urine Appearance Urine pH Ur Specific Amb[place] Urine Protein Urine Glucose (UA) Urine Ketones Urine Blood Urine Nitrite Urine Bilirubin Urine Urobilinogen Ur Leukocyte Esterase Urine WBC (Auto) Urine RBC (Auto) U Hyaline Cast (Auto) U Epithel Cells (Auto) Urine Bacteria (Auto) Granular Casts
--- NOTE | 2018-12-23 12:01 | Neurology Consultation ---
Date of Consultation December 23, 2018 History of Present Illness Attending Physician: Britton Cabrales MD The patient is an 83-year-old right-handed femaleWith a history of celiac disease parkinsonism and restless leg on this background the patient was admitted because of increased left-sided weakness. The patient also notes falls. She is fair historian. Patient recently relocated to the area by report in the last 1-1/2-year she has had 6 TIA episodes somewhat stroke with residual including 2 weeks ago when she developed a contracture of her right and then most recently left-sided weakness. She is not on any baseline platelet antiplatelet therapy. She is been living with her daughter since June 2018 and has become weaker and bedbound after her last clinic "stroke the daughter felt unable to care for her mother and she attempted to achieve hospice and home several days prior the patient had full body convulsions for an uncertain amount of time and then was tired thereafter. He was also more somnolent than usual. The patient denies any new symptoms. She denies any headache new unilateral weakness. She appears to have a wrist drop in the duration of that is unclear to me. Weak and malodorous.Patient's labs were notable for an elevated BUN calcium which was low even with correction positive troponin. MRI of the brain showed significant bilateral white matter changes none of which were new. Allergies Allergy/AdvReac Type Severity Reaction Status Date / Time Tetracyclines Allergy Unknown Verified 12/22/18 19:02 Home Medications Home Medications Medication Instructions Recorded Confirmed Type Calcium 600 + D(3) 1 ea PO BID 12/22/18 12/22/18 History acetaminophen 500 mg PO BID PRN 12/22/18 12/22/18 History amlodipine 2.5 mg PO DAILY 12/22/18 12/22/18 History carbidopa-levodopa 1 tab PO BID 12/22/18 12/22/18 History gabapentin 100 mg PO TID 12/22/18 12/22/18 History levothyroxine [Synthroid] 88 mcg PO DAILY 12/22/18 12/22/18 History lorazepam 1 mg PO TID PRN 12/22/18 12/22/18 History magnesium oxide 500 mg PO DAILY 12/22/18 12/22/18 History tramadol 50 mg PO Q6H PRN 12/22/18 12/22/18 History Patient History Medical History Celiac disease (Chronic) Parkinsons (Chronic) History of hysterectomy Restless legs syndrome Surgical History Cataract extraction status Family History Other Family history unobtainable Social History Preferred Language: Montserratian Communication Ability: Effective 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 Rider Required: No Beliefs That Will Affect Care: None and Sikhism Sikhism Beliefs: Yazidi marital status: / Current Living Situation: Family Current Living Situation Comment: hospice current occupational status: retired Other Information That Helps Us Care for You: No Feels Safe at Home: Yes and Hesitant to Answer Smoking Status: Never smoker Do You Dip or Chew Tobacco: No ; Second Hand Exposure: No ; Hx Alcohol Use: Yes Alcohol type: wine Hx Substance Use: No Review of Systems Neurologic: + gait abnormality, + unsteadiness, + falls, + restless legs, + seizure-like activity and + memory loss Physical Exam Physical Exam: Patient is a well-developed femaleIn no distress appears malodorous. There is no there are no carotid bruits. There are no heart murmurs appreciable. There is pretibial edema some contractures of the right fingers as well as at the knees bilaterally. No chest resting tremor is noted. She is oriented to person place and month but not year. There is no right left confusion. No aphasia is noted memory 0 out of 3 at 3 minutes. OS is greater than OD both the postsurgical optic nerves are difficult to visualize his normal cha motility there is a flattening of the left nasolabial fold. Speech is dysarthric. Upper extremities are diffusely approximately 4 out of 5 with some contracture of the fingers on the right wrist extension is 0 out of 5 patient appears to have a "" wrist drop. There is a left drift with decreased left rapid alternating movements lowers cooperation is poor they appear symmetric but the right tibialis anterior appears to be less than antigravity. No asymmetry of reflexes are noted. Sensory examination limited by cognition she is mildly clumsy on left finger-nose toe tapping is symmetric. Reflexes are symmetric toes are downgoing. Results & Data Vital Signs (Past 12 Hours) Vital Signs Temp Pulse Resp BP BP Pulse Ox 12/23/18 07:20 36.8 C 84 16 115/68 95 12/23/18 05:09 36.8 C 88 20 106/61 94 12/23/18 00:16 37 C 84 22 132/65 98
[2018-12-23] MEDS: ENOXAPARIN INJ 40 MG/0.4 ML SYR SQ SCH (16:20)
[2018-12-24 05:43] LABS: Basophils # (auto) 0.02 K/uL (0-0.2); Basophils % (auto) 0.2 %; Eosinophils # (auto) 0.24 K/uL (0-0.5); Eosinophils % (auto) 2.6 %; Hematocrit (blood only) 30.7 % (37-47); Hemoglobin 10.2 g/dL (12.0-16.0); Immature Granulocytes # (auto) 0.06 K/uL (0.00-0.02); Immature Granulocytes % (auto) 0.7 %; Lymphocytes # (auto) 0.84 K/uL (1.2-3.4); Lymphocytes % (auto) 9.3 %; Mean Corpuscular Hgb Conc 33.2 g/dL (32-36); Mean Platelet Volume 9.2 fL (7.4-10.4); Monocytes # (auto) 0.85 K/uL (0.11-0.59); Monocytes % (auto) 9.4 %; Neutrophils # (auto) 7.07 K/uL (1.4-6.5); Neutrophils % (auto) 77.8 %; Platelet Count 222 K/uL (130-400); RDW Coefficient of Variation 15.1 % (11.5-14.5); RDW Standard Deviation 55.2 fL (36.4-46.3); Red Blood Count 3.07 M/uL (4.2-5.4); White Blood Count 9.08 K/uL (4.8-10.8)
[2018-12-24] MEDS: LEVOTHYROXINE SODIUM 88 MCG TABLET PO SCH (05:53)
[2018-12-24 06:14] LABS: Estimated Average Glucose 114 mg/dl; Hemoglobin A1C 5.6 % (4.5-5.6)
[2018-12-24 06:17] LABS: BUN Creatinine Ratio 34.9 (10-20); Calcium 7.5 mg/dl (8.5-10.1); Creatinine Clr Calc Pharmacy 60.6 ml/min; Est GFR (African American) 94.9; Est GFR (Non-African American) 81.9; Potassium 3.4 mmol/L (3.5-5.1)
[2018-12-24] MEDS: GABAPENTIN 100 MG CAP PO SCH ×3 (08:16→21:04)
[2018-12-24] MEDS: CALCIUM 600MG + VIT D 400 IU TAB PO SCH ×2 (08:16→21:04)
--- NOTE | 2018-12-24 10:22 | Palliative Care Consultation ---
Date of Consultation December 24, 2018 Assessment & Plan (1) Goals of care, counseling/discussion: -83 year old female patient with PMH Parkinsonism, celiac disease, RLS, multiple TIAs, falls, hypothyroidism, CKD stage III, HLD and osteopenia, presented to the hospital on Monday with stroke-like symptoms. This patient just moved in with her daughter/POA, Arleth Lira, in June 2018. Prior to that, was living alone in [place], [place]. Patient has had several TIAs and presumed CVA at some point in the past, she was having frequent falls and increased difficult living alone thus moved in with her daughter. Arleth was doing okay taking care of patient until recently when her mother began having increased back pain. Records from [facility] indicate that patient had compression fracture of L4. Along with increased back pain, patient had left sided weakness and severe pain with any movement; so Arleth was having trouble changing patient and caring for her. Patient became bedbound, but only recently due to these new issues. Apparently there was also a questionable convulsive episode, but patient did not want to seek medical treatment and did not want to come to the hospital. Patient's daughter contacted [facility] to try and get her mother some symptom relief, but they recommended patient come to the ED for evaluation, as she has not seen a provider since she moved here from [place]. In the ED, potassium 2.9, creatinine 1.42, albumin 2.5. Xrays reveal ed the old L4 fracture and nondisplaced rib fracture, CT head showed no acute disease but did show extensive small vessel disease and old bilateral cortical infarcts. MRI brain was completed which showed same findings as CT. Creatinine has improved to 0.67 with some IVF, GFR is now 81.9 (from 39.3 on admission). Neurology consulted. Patient was not on antiplatelet therapy prior to arrival, assuming due to frequent falls? Palliative care is now consulted to discuss goals of care and for hospice evaluation. -Met with patient this morning in room 212. She is awake, mostly alert. Oriented to person, knew she was in a hospital (thought it was [place]), and knew that she was having falls and increased weakness. Fair to poor historian, but actually was answering appropriately. -Patient stated that she really is not interested in life prolonging or heroic measures-- main focus is on comfort/quality of life. She gave me permission to call her daughter, Arleth. -Spoke with Arleth for a length of time. She stated that patient's care suddenly became too much with this increased pain and left sided weakness. She confirmed the above story and stated her mother did NOT want to come to the hospital, which is why she contacted the hospice agency. -We discussed her mother's condition. Based on patient's neurologic disease: TIA/CVAs, dementia, Parkinson's, she is borderline appropriate for hospice at this time. Her baseline FAST score is 6e with total incontinence at home, albumin is 2.5. Hard to tell if this recent decline and her being bedbound is acute due to pain exacerbation or if it is due to progressive disease/new baseline. She currently does not have any complications due to her dementia such as pneumonia, UTIs, wounds, etc. Daughter agreed with all of this. -Plan is for patient to go to SNF under skilled care initially. Patient states she will attempt to participate in therapy. Will use this time to determine if patient can go back home or will need to stay in SNF long-term. If she continues to decline and this is in fact her new baseline, will likely enter hospice care at that time. -Case management updated and will be making referrals to 3 SNFs. -Is currently ordered Tramadol 50mg PO Q6h PRN, as she is ordered at home. Has not used any since 1800 last evening. Patient had no pain when lying still in bed, but states that with any movement it increases to "severe." If Tramadol is ineffective, consider Oxy IR 5mg PO Q4-6 PRN. (2) Stroke-like symptoms: (3) Back pain: (4) Parkinsons: Supervising Physician Co-Signing Physician Notes Chart reviewed, patient seen and examined. Patient only aware of recent CVA- unaware of prior TIAs or stroke. PE: No acute distress, no increased pain HEENT: EOMI, hearing within normal limits Respirations: Unlabored CV: Regular rate, positive ESTELLA Abdomen: Soft, nontender Extremities: Mild contractures of both lower extremities, right wrist drop, generalized weakness Neuro: Positive memory deficits Agree with above note, assessment and plan as per MARAH Baxter-we will continue to follow and assist family with medical decision making. History of Present Illness Attending Physician: Britton Cabrales MD History of Present Illness This 83 year old female patient with PMH Parkinsonism, celiac disease, RLS, multiple TIAs, falls, hypothyroidism, CKD stage III, HLD and osteopenia, presented to the hospital on Monday with stroke-like symptoms. This patient just moved in with her daughter/POA, Arleth Lira, in June 2018. Prior to that, was living alone in [place], [place]. Patient has had several TIAs and presumed CVA at some point in the past, she was having frequent falls and increased difficult living alone thus moved in with her daughter. Arleth was doing okay taking care of patient until recently when her mother began having increased back pain. Records from [facility] indicate that patient had compression fracture of L4. Along with increased back pain, patient had left sided weakness and severe pain with any movement; so Arleth was having trouble changing patient and caring for her. Patient became bedbound, but only recently due to these new issues. Apparently there was also a questionable convulsive episode, but patient did not want to seek medical treatment and did not want to come to the hospital. Patient's daughter contacted [facility] to try and get her mother some symptom relief, but they recommended patient come to the ED for evaluation, as she has not seen a provider since she moved here from [place]. In the ED, potassium 2.9, creatinine 1.42, albumin 2.5. Xrays revealed the old L4 fracture and nondisplaced rib fracture, CT head showed no acute disease but did show extensive small vessel disease and old bilateral cortical infarcts. MRI brain was completed which showed same findings as CT. Creatinine has improved to 0.67 with some IVF, GFR is now 81.9 (from 39.3 on admission). Neurology consulted. Patient was not on antiplatelet therapy prior to arrival, assuming due to frequent falls? Palliative care is now consulted to discuss goals of care and for hospice evaluation. Thank you kindly for this consult. Palliative care team will follow as needed. Allergies Allergy/AdvReac Type Severity Reaction Status Date / Time Tetracyclines Allergy Unknown Verified 12/22/18 19:02 Home Medications Home Medications Medication Instructions Recorded Confirmed Type Calcium 600 + D(3) 1 ea PO BID 12/22/18 12/22/18 History acetaminophen 500 mg PO BID PRN 12/22/18 12/22/18 History amlodipine 2.5 mg PO DAILY 12/22/18 12/22/18 History carbidopa-levodopa 1 tab PO BID 12/22/18 12/22/18 History gabapentin 100 mg PO TID 12/22/18 12/22/18 History levothyroxine [Synthroid] 88 mcg PO DAILY 12/22/18 12/22/18 History lorazepam 1 mg PO TID PRN 12/22/18 12/22/18 History magnesium oxide 500 mg PO DAILY 12/22/18 12/22/18 History tramadol 50 mg PO Q6H PRN 12/22/18 12/22/18 History Patient History Medical History Celiac disease (Chronic) Parkinsons (Chronic) History of hysterectomy Restless legs syndrome Surgical History Cataract extraction status Family History Other Family history unobtainable Social History Preferred Language: Belizean Communication Ability: Effective Master Esthetician Required: No Beliefs That Will Affect Care: None and Denominational Denominational Beliefs: Faith marital status: / Current Living Situation: Family Current Living Situation Comment: hospice current occupational status: retired Other Information That Helps Us Care for You: No Feels Safe at Home: Yes and Hesitant to Answer Smoking Status: Never smoker Do You Dip or Chew Tobacco: No ; Second Hand Exposure: No ; Hx Alcohol Use: Yes Alcohol type: wine Hx Substance Use: No Review of Systems Constitutional: + weakness Ear, Nose, Mouth, Throat: no dysphagia Respiratory: no cough and no dyspnea Cardiovascular: no chest pain Gastrointestinal: no abdominal pain, no nausea and no vomiting Genitourinary: + urinary incontinence Musculoskeletal: as per Subjective / HPI Neurologic: no confusion Psychiatric: no anxiety Physical Exam Constitutional: + acute distress and + disheveled ENMT: external ear and nose normal, oropharynx normal Neck: normal visual inspection Respiratory: normal respiratory effort, lungs clear to auscultation Cardiovascular: RRR, no murmur, no edema Vessels: dorsalis pedis pulses present Gastrointestinal (Abdomen): Inspection/Auscultation: abdomen normal to inspection and normal bowel sounds; abdomen not distended Percussion/Palpation: abdomen soft; abdomen nontender Skin: one small pressure ulcer to right medial heel Neurologic: moves all extremities and awake Psychiatric: Orientation: alert, oriented to person and oriented to place; + not oriented to time Insight: + limited insight Results & Data Vital Signs (Past 12 Hours) Vital Signs Temp Pulse Resp BP BP Pulse Ox 12/24/18 07:30 36.9 C 76 16 109/68 91 12/24/18 03:45 36.8 C 87 20 132/88 95 12/24/18 00:03 36.6 C 79 18 100/60 96 Time Spent Midlevel 70 minutes with >50% of the time spent at bedside with patient, on phone with family discussing condition and GOC.
[2018-12-24] MEDS ORDERED: CETIRIZINE HCL 10 MG TABLET PO ONE (10:44)
--- NOTE | 2018-12-24 13:59 | Neurology Progress Note ---
Date of Service December 24, 2018 Assessment & Plan (1) Left-sided weakness: 1. MRI brain negative for acute stroke 2. dementia- appears to be at baseline 3. some previous med records scanned into chart- would be helpful to have PCP records and more recent records 4. continue Sinemet 25/100 mg BID for now 5. continue medical management per primary service 6. palliative medicine involved - rehab planned and then transition to hospice if no improvement 7. right wrist drop may be injury from fall - usually resolves on own Supervising Physician Co-Signing Physician Notes I have seen and discussed above patient with Dr Val Buitrago, neurology Patient seen and briefly examined. Discussed with Val Olvera. Several days prior to admission the daughter had witnessed possible seizure activity. There is a report of a new stroke in the last 2 weeks however this is not seen on MRI imaging. I wonder if this may have been the right wrist drop. That appears to be potentially peripheral. Patient is awake and alert orientation checked by physician's staffing assistant. In addition to previously documented weakness there is weakness of the right wrist and finger extensors. Impression patient has a history of dementia this may well be vascular. 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 I am assuming given the Sinemet that she was seeing neurology she should follow-up with them as an outpatient. Radiographically I do not see any evidence of a new stroke. 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 If this does not improve and the patients family desires further evaluation nerve conduction EMG would be reasonable as an outpatient Possible seizure recommend EEG. I would not treat unless this was overtly abnormal. Poly-factorial delirium improving sign that ALEKSANDAR Buitrago MD Julio Herron is an 83 year old female who presents to the ED with weakness. She lives with her daughter in the basement. A few days ago, patient developed stroke like symptoms with left sided weakness. An attempt was made to place the patient on hospice however that was unsuccessful. Nursing reports that when patient arrived to the ED, she was disheveled and was soiled. She had a diaper on that appeared to be days old. She was unsure why she came to the hospital. Her labs on admission -K+ is 2.9, WBC 14K, creat 1.2, trop 0.052. EKG is without acute ST changes. Today she states she is doing well. there is no family in room. Dr Florentino was consulted and daughter is wishing rehab and then placement for hospice if unable to improve. denies CP, SOB, abdominal pain, one sided weakness, numbness tingling, N, V. swallowingi issues, she currently has a foss catheter. 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+/5, left 5/5 hip flex against gravity 4+/5 bilaterally sensation intact to light touch and vibration no pronator drift knows she is in a hospital in [place], 2019, lives with daughter Results & Data Vital Signs (Past 12 Hours) Vital Signs Temp Pulse Resp BP BP Pulse Ox 12/24/18 12:20 36.4 C L 95 H 16 139/74 95 12/24/18 07:30 36.9 C 76 16 109/68 91 12/24/18 03:45 36.8 C 87 20 132/88 95 Laboratory Results Abnormal lab results 12/24/18 12/24/18 Range/Units 05:31 05:31 RBC 3.07 L (4.2-5.4) M/uL Hgb 10.2 L (12.0-16.0) g/dL Hct 30.7 L (37-47) % RDW Std Deviation 55.2 H (36.4-46.3) fL RDW Coeff of Matilde 15.1 H (11.5-14.5) % Immature Gran # (Auto) 0.06 H (0.00-0.02) K/uL Neut # (Auto) 7.07 H (1.4-6.5) K/uL Lymph # (Auto) 0.84 L (1.2-3.4) K/uL [place] # (Auto) 0.85 H (0.11-0.59) K/uL Potassium 3.4 L (3.5-5.1) mmol/L BUN 23 H (7-18) mg/dl BUN/Creatinine Ratio 34.9 H (10-20) Calcium 7.5 L (8.5-10.1) mg/dl Diagnostic Findings MRI brain - No acute intracranial findings No evidence of acute or subacute infarction 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 Moderate degenerative change.
[2018-12-24] MEDS: ASPIRIN 81 MG ECTAB PO SCH (15:02)
[2018-12-24] MEDS: ACETAMINOPHEN 325 MG TAB PO PRN (15:07)
--- NOTE | 2018-12-24 15:32 | Hospitalist Progress Note ---
Date of Service December 24, 2018 Assessment & Plan (1) Left-sided weakness: LEFT SIDED WEAKNESS, ACUTE CVA RULED OUT Brain MRI: 1. No acute intracranial findings 2. No evidence of acute or subacute infarction 3. Extensive small vessel disease 4. 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 from Parkinson? Left upper extremity strength improved today continue Sinemet Neurology consulted PT/OT eval Likely need longterm facility placement xrays of the shoulder and humerus: negative OLD CORTICAL INFARCTS Start ASA, Lipitor LEFT RIB FRACTURE Nondisplaced cortical fracture left ninth rib Incentive spirometry PRN analgesics PARKINSON DISEASE management as per #1 HYPERTENSION Resume usual amlodipine DVT Prophylaxis Lovenox DNR Disposition pending will need to transition to SNF (2) Parkinsons: -resume carbidopa/levadopa once taking PO Subjective Follow-up for left sided weakness Seen resting in bed, sleeping but easily awakened States she feels improved compared to yesterday, still feels tired Denies any new focal neurologic deficits Oriented x2, answers all questions appropriately Denies abdominal pain, chest pain, shortness of breath, palpitations, dizziness No other symptoms Review of Systems Review of Systems: All systems reviewed & are unremarkable except as noted in HPI & below Physical Exam Physical Exam: General- oriented x 2, not in distress, speaks in sentences with no effort or accessory muscle use Appears weak, moving slowly Eyes- anicteric Neck- no JVD Lungs- clear breath sounds bilaterally Heart- normal rate, regular rhythm; grade 2-3 holosystolic murmur Abdomen- normal bowel sounds, nondistended, soft, nontender Back-multiple papules scattered on movement, mild erythema Extremities- no pretibial edema, no calf tenderness Neuro- alert, oriented x 2; upper extremity 4/5 strength, lower extremity 3/5 strength otherwise, no gross focal neurologic deficits Skin- warm & dry Results & Data Vital Signs (Past 12 Hours) Vital Signs Temp Pulse Resp BP BP Pulse Ox 12/24/18 12:20 36.4 C L 95 H 16 139/74 95 12/24/18 07:30 36.9 C 76 16 109/68 91 12/24/18 03:45 36.8 C 87 20 132/88 95 Laboratory Results Laboratory Results - last 24 hr 12/22/18 12/24/18 12/24/18 12:02 05:31 05:31 WBC 9.08 RBC 3.07 L Hgb 10.2 L Hct 30.7 L MCV 100.0 MCH 33.2 MCHC 33.2 RDW Std Deviation 55.2 H RDW Coeff of Matilde 15.1 H Plt Count 222 MPV 9.2 Immature Gran % (Auto) 0.7 Neut % (Auto) 77.8 Lymph % (Auto) 9.3 [place] % (Auto) 9.4 Eos % (Auto) 2.6 Baso % (Auto) 0.2 Immature Gran # (Auto) 0.06 H Neut # (Auto) 7.07 H Lymph # (Auto) 0.84 L [place] # (Auto) 0.85 H Eos # (Auto) 0.24 Baso # (Auto) 0.02 Sodium 138 Potassium 3.4 L Chloride 104 Carbon Dioxide 29 Anion Gap 5.0 BUN 23 H Creatinine 0.67 Est Cr Clr Drug Dosing 60.6 Est GFR ( Amer) 94.9 Est GFR (Non-Af Amer) 81.9 BUN/Creatinine Ratio 34.9 H Glucose 83 Estimat Average Glucose 114 Hemoglobin A1c 5.6 Calcium 7.5 L
[2018-12-24] MEDS: ENOXAPARIN INJ 40 MG/0.4 ML SYR SQ SCH (17:26)
[2018-12-24] MEDS: TRAMADOL HCL 50 MG TABLET PO PRN (17:30)
[2018-12-24] MEDS: ATORVASTATIN 40 MG TAB PO SCH (21:04)
[2018-12-25] MEDS: LEVOTHYROXINE SODIUM 88 MCG TABLET PO SCH (05:34)
[2018-12-25 06:21] LABS: Basophils # (auto) 0.02 K/uL (0-0.2); Basophils % (auto) 0.3 %; Eosinophils % (auto) 2.7 %; Hematocrit (blood only) 29.7 % (37-47); Hemoglobin 9.7 g/dL (12.0-16.0); Immature Granulocytes # (auto) 0.05 K/uL (0.00-0.02); Immature Granulocytes % (auto) 0.7 %; Lymphocytes # (auto) 0.94 K/uL (1.2-3.4); Lymphocytes % (auto) 12.7 %; Mean Corpuscular Hgb Conc 32.7 g/dL (32-36); Mean Platelet Volume 9.5 fL (7.4-10.4); Monocytes % (auto) 10.8 %; Neutrophils # (auto) 5.38 K/uL (1.4-6.5); Neutrophils % (auto) 72.8 %; Platelet Count 252 K/uL (130-400); RDW Coefficient of Variation 14.9 % (11.5-14.5); RDW Standard Deviation 54.5 fL (36.4-46.3); Red Blood Count 2.97 M/uL (4.2-5.4); White Blood Count 7.39 K/uL (4.8-10.8)
[2018-12-25 07:13] LABS: BUN Creatinine Ratio 25.1 (10-20); Calcium 7.6 mg/dl (8.5-10.1); Creatinine Clr Calc Pharmacy 65.5 ml/min; Est GFR (African American) 97.3; Potassium 3.3 mmol/L (3.5-5.1)
[2018-12-25] MEDS ORDERED: CETIRIZINE HCL 10 MG TABLET PO PRN (09:00)
[2018-12-25] MEDS: GABAPENTIN 100 MG CAP PO SCH ×3 (09:13→20:59)
[2018-12-25] MEDS: CALCIUM 600MG + VIT D 400 IU TAB PO SCH ×2 (09:13→20:59)
[2018-12-25] MEDS: TRAMADOL HCL 50 MG TABLET PO PRN (09:20)
[2018-12-25] MEDS: ASPIRIN 81 MG ECTAB PO SCH (09:34)
[2018-12-25] MEDS ORDERED: POTASSIUM CHLORIDE 10 MEQ TABCR PO STA (11:10)
--- NOTE | 2018-12-25 11:21 | Palliative Care Progress Note ---
Date of Service December 25, 2018 Assessment & Plan (1) Goals of care, counseling/discussion: -83 year old female patient with parkinsonism, dementia (likely vascular), extensive small vessel disease on CT and MRI brain. She had presented with left sided weakness, but no new strokes on imaging. -With further investigation in speaking with daughter and patient, she has actually been bed-bound now for about 4 months. Her hips are "windswept" and slightly contracted, indicating long-term immobility and bedbound status. Therapy attempted to work with patient, but she is not able to fully participate. It seems as though we are likely looking at patient's new baseline. -Previously, I stated that patient's baseline FAST score was 6e, but again after discussion, it seems that her baseline is now likely 7c given her bedbound status. PPS is now 30%. Patient has poor PO intake as well. -I discussed goals of care with patient, and she is not incredibly interested in participating in any sort of therapy anyway. patient states she just wants to be comfortable and "left alone." Patient's daughter did state that since patient's about a year and a half ago, there has been major decline and likely an element of depression. -Given no skilled need and patient's wishes to let nature take its course, along with advanced dementia, poor PO intake, albumin 2.5, and other comorbidities, I do feel that patient's prognosis could be six months or less. Patient and daughter are both in favor of patient being discharged to SNF with hospice. Case management is following to get hospice set up. (2) Stroke-like symptoms: (3) Back pain: (4) Parkinsons: Subjective Patient is about the same today as far as mental status. Was able to tell me where she was, why she was in hospital, knew it was December but again thought it was the . C/o occasional pain in her back when trying to move, but it is a 0/10 at this time while lying still in bed. Review of Systems Review of Systems: + weakness no dysphagia no cough and no dyspnea no chest pain no abdominal pain, no nausea and no vomiting + urinary incontinence as per Subjective / HPI no confusion no anxiety Physical Exam Constitutional: + acute distress and + disheveled ENMT: external ear and nose normal, oropharynx normal Neck: normal visual inspection Respiratory: normal respiratory effort, lungs clear to auscultation Cardiovascular: RRR, no murmur, no edema Vessels: dorsalis pedis pulses present Gastrointestinal (Abdomen): Inspection/Auscultation: abdomen normal to inspection and normal bowel sounds; abdomen not distended Percussion/Palpation: abdomen soft; abdomen nontender Neurologic: moves all extremities and awake Psychiatric: Orientation: alert, oriented to person and oriented to place; + not oriented to time Insight: + limited insight Results & Data Vital Signs (Past 12 Hours) Vital Signs Temp Pulse Pulse Resp BP BP Pulse Ox 12/25/18 11:12 36.7 C 89 19 122/68 94 12/25/18 09:00 78 12/25/18 07:42 36.7 C 83 20 132/76 94 12/25/18 03:31 36.9 C 82 16 118/65 97 12/24/18 23:32 37.1 C 84 16 133/73 95 PG Care Time/CCT Total # of Minutes Spent Total Time Spent with Patient: Total time spent is greater than 50% in coordination of care (as documented) at patient's floor/unit and/or counseling patient: Time Spent Midlevel 35 minutes with >50% of the time spent at bedside with patient and IDT discussing condition, GOC and coordinating care with team.
--- NOTE | 2018-12-25 11:30 | XRay Report ---
XR KUB/Abdomen 1 view CLINICAL HISTORY: distension, r/o obstruction pain COMPARISON STUDY: No previous studies for comparison. FINDINGS: Air-filled nonobstructed colon. No significant small bowel distention. No secondary signs of free air. IMPRESSION: Mild nonobstructive ileus. The above report was generated using voice recognition software. It may contain grammatical, syntax or spelling errors. Electronically signed by: Jairo Cruz M.D. 12/25/2018 11:29 AM
--- NOTE | 2018-12-25 13:42 | Gastrointestinal Consultation ---
Date of Consultation December 25, 2018 Assessment & Plan (1) Constipation: Cause of mild ileus likely from Parkinson's Disease then with admission, her medicines that cause constipation were increased: Tramadol, Sinemet, Gabapentin. 1. Relistor, one dose now. 2. Add fiber and Miralax daily. 3. Will recheck tomorrow. Present on Admission?: Yes Supervising Physician Co-Signing Physician Notes I have performed a history and physical examination of this patient and reviewed the electronic medical record. Specifically, on physical examination there is no abdominal tenderness and minimal distention. I have discussed the case with MARAH Serrato. The above note reflects my findings, conclusions, and recommendations. Jl Stoen MD History of Present Illness Reason for Consultation: Ileus Requesting Physician: Dr. Stone Attending Physician: Britton Cabrales MD History of Present Illness Ms. Germaine Fournier is an 83 yr old female pt of Dr. TRACEY who carries a hx of Parkinson's with dementia. She has been bed bound for approx a month, is living with her daughter and hospice is being arranged. She was brought to [facility] on 12/22 for left sided weakness. Neuro consulted who did not see evidence of recent stroke, though noted wrist drop. GI is consulted for ileus. Current meds include Tramadol, Carbidopa/Levodopa, Gabapentin, Gadobutrol. Nursing tells me that, in report, she was told that she passed a very large loose BM on 12/22. KUB today with mild obstructive ileus. The pt tells me that she has a hx of constipation. I spoke with her daughter, by phone, who tells me that the pt typically passes a large loose BM a few times/week. She has Celiac Disease and her daughter tells me that the pt is m aintained on fiber daily and if she gets any incidental gluten in her diet, she also gets constipation. With a high fiber diet and daily fiber supplement, rare tramadol use, she did fairly well at home over the past 6 months. Daughter tells me that She also tells me that Tramodol has caused constipation for her in the past. Daughter requests that the Gabapentin be given on an as needed basis for pain. She requests that we "not give that much medication." Allergies Allergy/AdvReac Type Severity Reaction Status Date / Time Tetracyclines Allergy Unknown Verified 12/22/18 19:02 Home Medications Home Medications Medication Instructions Recorded Confirmed Type Calcium 600 + D(3) 1 ea PO BID 12/22/18 12/22/18 History acetaminophen 500 mg PO BID PRN 12/22/18 12/22/18 History amlodipine 2.5 mg PO DAILY 12/22/18 12/22/18 History carbidopa-levodopa 1 tab PO BID 12/22/18 12/22/18 History gabapentin 100 mg PO TID 12/22/18 12/22/18 History levothyroxine [Synthroid] 88 mcg PO DAILY 12/22/18 12/22/18 History lorazepam 1 mg PO TID PRN 12/22/18 12/22/18 History magnesium oxide 500 mg PO DAILY 12/22/18 12/22/18 History tramadol 50 mg PO Q6H PRN 12/22/18 12/22/18 History Patient History Medical History Celiac disease (Chronic) Parkinsons (Chronic) History of hysterectomy Restless legs syndrome Surgical History Cataract extraction status Family History Other Family history unobtainable Social History Preferred Language: Central African Communication Ability: Effective Silver Recovery Operator Required: No Beliefs That Will Affect Care: None and Buddhism Buddhism Beliefs: Advent marital status: / Current Living Situation: Family Current Living Situation Comment: hospice current occupational status: retired Other Information That Helps Us Care for You: No Feels Safe at Home: Yes and Hesitant to Answer Smoking Status: Never smoker Do You Dip or Chew Tobacco: No ; Second Hand Exposure: No ; Hx Alcohol Use: Yes Alcohol type: wine Hx Substance Use: No Review of Systems Review of Systems: ROS: Gen: + weakness, No fevers, weight loss Resp: Nursing reports no pt c/o SOB, or cough Cardio: Denies palpitations/irregular beats, no chest pain GI: Daughter states that po intake has been good, nursing also reports good po intake. Pt specifically denies abdominal pain today. No vomiting : Denies pain on urination; Elizabeth in place Skin: No jaundice, itching or new rashes Physical Exam Constitutional: WD/WN, vitals as above + physical limitations (generally weak, assists minimally with being moved in bed.) Eyes: PERRL, conjunctivae normal, anicteric sclerae ENMT: external ear and nose normal, oropharynx normal Respiratory: normal respiratory effort, lungs clear to auscultation Cardiovascular: RRR, no murmur, no edema Gastrointestinal (Abdomen): Inspection/Auscultation: + abdomen distended (mildly) and normal bowel sounds Percussion/Palpation: abdomen soft; abdomen nontender Skin: no rashes, warm and dry Lymphatic: no cervical or axillary lymphadenopathy Results & Data Vital Signs (Past 12 Hours) Vital Signs Temp Pulse Pulse Resp BP BP Pulse Ox 12/25/18 11:12 36.7 C 89 19 122/68 94 12/25/18 09:00 78 12/25/18 07:42 36.7 C 83 20 132/76 94 12/25/18 03:31 36.9 C 82 16 118/65 97 Diagnostic Findings KUB 12/25/18: Mild nonobstructive ileus.
[2018-12-25] MEDS: D5W AND NSS 1,000 ML IV SCH (13:56)
[2018-12-25] MEDS ORDERED: METHYLNALTREXONE BROMIDE 12 MG/0.6 ML VIAL SQ ONE (15:00)
--- NOTE | 2018-12-25 16:03 | XRay Report ---
XR chest 1V portable CLINICAL HISTORY: Pneumonia symptomatology COMPARISON STUDY: 12/22/2018 FINDINGS: The heart is the upper limits of normal in size. There is no failure. There is no focal pul monary consolidation. There are no pleural effusions. There is an old left-sided rib fracture. There is a possible small hiatal hernia.[ IMPRESSION: No active disease in the chest. Electronically signed by: Dontrell Balderas M.D. 12/25/2018 4:02 PM
[2018-12-25] MEDS: ENOXAPARIN INJ 40 MG/0.4 ML SYR SQ SCH (16:10)
[2018-12-25] MEDS ORDERED: AMLODIPINE BESYLATE 5 MG TAB PO ONE (16:15)
--- NOTE | 2018-12-25 16:49 | Hospitalist Progress Note ---
Date of Service December 25, 2018 Assessment & Plan (1) Left-sided weakness: LEFT SIDED WEAKNESS, ACUTE CVA RULED OUT Brain MRI: 1. No acute intracranial findings 2. No evidence of acute or subacute infarction 3. Extensive small vessel disease 4. 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 from Parkinson? Left upper extremity strength improved today Still has significant lower extremity weakness-most likely from deconditioning, patient has not ambulated for a month according to her continue Sinemet Neurology consulted PT/OT evaluation Will need custodial facility placement xrays of the shoulder and humerus: negative OLD CORTICAL INFARCTS ASA, Lipitor started ILEUS Abdominal distention December 25, 2018 KUB x-ray: Positive mild ileus N.p.o. for now, IV fluids started GI consulted LOW-GRADE FEVER Developed fever 37.9 December 25, 2018 No obvious signs of infection at this point Check urinalysis, blood cultures, chest x-ray Monitor fever curve LEFT RIB FRACTURE Nondisplaced cortical fracture left ninth rib Incentive spirometry PRN analgesics PARKINSON DISEASE management as per #1 HYPERTENSION Resume usual amlodipine DVT Prophylaxis Lovenox DNR Disposition pending will need to transition to SNF Subjective Follow-up for left-sided weakness Seen resting in bed, comfortable, not in distress Oriented x2, answers all questions appropriately States she feels okay overall Left sided weakness improving No other new focal neurologic symptoms today Denies headache no chest pain no shortness of breath, nausea vomiting, abdominal pain In the afternoon, patient temperature is 37.9 No other signs or symptoms Review of Systems Review of Systems: All systems reviewed & are unremarkable except as noted in HPI & below Physical Exam Physical Exam: General- oriented x 2, not in distress, speaks in sentences with no effort or accessory muscle use Still somewhat weak but improved Eyes- anicteric Neck- no JVD Lungs- clear breath sounds bilaterally, rales, no wheezing bilaterally Heart- normal rate, regular rhythm; no murmurs Abdomen- normal bowel sounds, mild distention, soft, nontender Extremities- no pretibial edema, no calf tenderness Neuro- alert, oriented x 2; strength 4 out of 5 in upper extremities, 2-3 out of 5 lower extremities Skin- warm & dry Results & Data Vital Signs (Past 12 Hours) Vital Signs Temp Pulse Pulse Resp BP BP Pulse Ox 12/25/18 15:12 37.9 C H 93 H 19 162/93 H 97 12/25/18 11:12 36.7 C 89 19 122/68 94 12/25/18 09:00 78 12/25/18 07:42 36.7 C 83 20 132/76 94 Laboratory Results Laboratory Results - last 24 hr 12/25/18 12/25/18 06:00 06:00 WBC 7.39 RBC 2.97 L Hgb 9.7 L Hct 29.7 L MCV 100.0 MCH 32.7 MCHC 32.7 RDW Std Deviation 54.5 H RDW Coeff of Matilde 14.9 H Plt Count 252 MPV 9.5 Immature Gran % (Auto) 0.7 Neut % (Auto) 72.8 Lymph % (Auto) 12.7 [place] % (Auto) 10.8 Eos % (Auto) 2.7 Baso % (Auto) 0.3 Immature Gran # (Auto) 0.05 H Neut # (Auto) 5.38 Lymph # (Auto) 0.94 L [place] # (Auto) 0.80 H Eos # (Auto) 0.20 Baso # (Auto) 0.02 Sodium 138 Potassium 3.3 L Chloride 104 Carbon Dioxide 28 Anion Gap 6.0 BUN 15 Creatinine 0.62 Est Cr Clr Drug Dosing 65.5 Est GFR ( Amer) 97.3 Est GFR (Non-Af Amer) 84.0 BUN/Creatinine Ratio 25.1 H Glucose 76 Calcium 7.6 L
--- NOTE | 2018-12-25 16:59 | Neurology Progress Note ---
Date of Service December 25, 2018 Assessment & Plan (1) Left-sided weakness: 1. MRI brain negative for acute stroke 2. dementia- appears to be at baseline 3. some previous med records scanned into chart- would be helpful to have PCP records and more recent records 4. continue Sinemet 25/100 mg BID for now 5. continue medical management per primary service 6. palliative medicine involved - rehab planned and then transition to hospice if no improvement 7. right wrist drop may be injury from fall - usually resolves on own Supervising Physician Co-Signing Physician Notes I have seen and discussed above patient with Dr Val Buitrago, neurology. Pt seen and examined. Awake alert. Exam in addition to prior shows R wrist drop and contracted LE Dementia, vascular with poor ambulatory status. No new infarct, but presentation may have been from metabolic abnl Reported possible sz, EEG done, await report. Would not tx unless EEG showed definite epileptogenic discharges. 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 She is not overtly Parkinsonian. I have no objection to use of Sinemt provided pt not hallucinating. Will sign off. Jesika Felder MD Julio Herron is an 83 year old female who presents to the ED with weakness. She lives with her daughter in the basement. A few days ago, patient developed stroke like symptoms with left sided weakness. An attempt was made to place the patient on hospice however that was unsuccessful. Nursing reports that when patient arrived to the ED, she was disheveled and was soiled. She had a diaper on that appeared to be days old. She was unsure why she came to the hospital. Her labs on admission -K+ is 2.9, WBC 14K, creat 1.2, trop 0.052. EKG is without acute ST changes. Dr Florentino was consulted and daughter is wishing rehab and then placement for hospice if unable to improve. Today she states she is feeling better. there is no family in room. denies CP, SOB, abdominal pain, one sided weakness, numbness tingling, N, V. swallowing issues, she currently has a foss catheter. She had a EEG done today but no results are in the system. Physical Exam Physical Exam: gen: alert NAD lungs course breath sounds CV RRR right UE unable to extend at wrist, able to squeeze with both hands bilateral LE contractures Results & Data Vital Signs (Past 12 Hours) Vital Signs Temp Pulse Pulse Resp BP BP Pulse Ox 12/25/18 15:12 37.9 C H 93 H 19 162/93 H 97 12/25/18 11:12 36.7 C 89 19 122/68 94 12/25/18 09:00 78 12/25/18 07:42 36.7 C 83 20 132/76 94
[2018-12-25 18:13] LABS: Appearance Urine Turbid (Clear); Bacteria Urine Automated 4+ (Negative); Bilirubin Urine Negative (Negative); Blood Urine 3+ (Negative); Color Urine Yellow; Epithelial Cell Urine Auto >30 /lpf (0-5); Glucose Urine UA Negative (Negative); Ketones Urine Negative (Negative); Leukocyte Esterase Urine 3+ (Negative); Nitrite Urine Positive (Negative); Protein Urine Trace (Negative); Specific Gravity Urine 1.018 (1.000-1.030); Urobilinogen Urine Negative (Negative); WBC Urine Automated >30 /hpf (0-5)
[2018-12-25] MEDS: cefTRIAXone SODIUM 2,000 MG in DEXTROSE 5% 50 ML IV SCH (18:54)
[2018-12-25] MEDS: PSYLLIUM 58.6% POWDER PACKET PO SCH (20:26)
[2018-12-25] MEDS: ATORVASTATIN 40 MG TAB PO SCH (20:59)
--- NOTE | 2018-12-25 21:54 | Electroencephalogram ---
EEG Procedure Note Date of Service December 25, 2018 Start / End Times Start Time: 07:05 End Time: 07:[address] Britton Cabrales History An 83 year old woman with seizure like activity. She has a history of dementia and parkinson's. EEG performed for evaluation of epileptiform activity. Home Medication List Home Medications Medication Instructions Recorded Confirmed Type Calcium 600 + D(3) 1 ea PO BID 12/22/18 12/22/18 History acetaminophen 500 mg PO BID PRN 12/22/18 12/22/18 History amlodipine 2.5 mg PO DAILY 12/22/18 12/22/18 History carbidopa-levodopa 1 tab PO BID 12/22/18 12/22/18 History gabapentin 100 mg PO TID 12/22/18 12/22/18 History levothyroxine [Synthroid] 88 mcg PO DAILY 12/22/18 12/22/18 History lorazepam 1 mg PO TID PRN 12/22/18 12/22/18 History magnesium oxide 500 mg PO DAILY 12/22/18 12/22/18 History tramadol 50 mg PO Q6H PRN 12/22/18 12/22/18 History Inpatient Medication List Acetaminophen (Tylenol) 650 mg PO Q4H PRN PRN Reason: Pain or Fever Stop: 01/21/19 16:04 Last Admin: 12/24/18 15:07 Dose: 650 mg Documented by: [id number] Aspirin (Ecotrin Ectab) 81 mg PO DAILY [facility] Stop: 01/23/19 13:59 Last Admin: 12/25/18 09:34 Dose: 81 mg Documented by: [id number] Admin: 12/24/18 15:02 Dose: 81 mg Documented by: [id number] Atorvastatin Calcium (Lipitor) 40 mg PO HS [facility] Stop: 01/23/19 20:59 Last Admin: 12/25/18 20:59 Dose: 40 mg Documented by: [id number] Admin: 12/24/18 21:04 Dose: 40 mg Documented by: [id number] Enoxaparin Sodium (Lovenox) 40 mg SQ Q24H [facility] Stop: 01/21/19 16:29 Last Admin: 12/25/18 16:10 Dose: 40 mg Documented by: [id number] Admin: 12/24/18 17:26 Dose: 40 mg Documented by: [id number] Admin: 12/23/18 16:20 Dose: 40 mg Documented by: [id number] Admin: 12/22/18 19:47 Dose: 40 mg Documented by: [id number] Gabapentin (Neurontin) 100 mg PO TID [facility] Stop: 01/21/19 20:59 Last Admin: 12/25/18 20:59 Dose: 100 mg Documented by: [id number] Admin: 12/25/18 13:58 Dose: Not Given Documented by: [id number] Admin: 12/25/18 09:13 Dose: 100 mg Documented by: [id number] Admin: 12/24/18 21:04 Dose: 100 mg Documented by: [id number] Admin: 12/24/18 15:02 Dose: 100 mg Documented by: [id number] Admin: 12/24/18 08:16 Dose: 100 mg Documented by: [id number] Admin: 12/23/18 19:49 Dose: 100 mg Documented by: [id number] Admin: 12/23/18 13:12 Dose: 100 mg Documented by: [id number] Admin: 12/23/18 08:01 Dose: 100 mg Documented by: [id number] Admin: 12/22/18 19:48 Dose: 100 mg Documented by: [id number] Gadobutrol (Gadavist 7.5ml) 6 ml IV ONCE PRN PRN Reason: Interaction Checking Stop: 12/26/18 17:27 Last Admin: 12/22/18 17:29 Dose: 6 ml Documented by: [id number] Dextrose/Sodium Chloride (D5w And Nss) 1,000 mls @ 60 mls/hr IV .[id number] [facility] Stop: 01/24/19 13:29 Last Admin: 12/25/18 13:56 Dose: 60 mls/hr Documented by: [id number] Ceftriaxone Sodium 2,000 mg/ (Dextrose) 70 mls @ 100 mls/hr IV DAILY@1900 [facility]; Protocol Stop: 12/30/18 18:59 Last Infusion: 12/25/18 19:55 Dose: 0 mls/hr Documented by: [id number] Admin: 12/25/18 18:54 Dose: 100 mls/hr Documented by: [id number] Levothyroxine Sodium (Synthroid) 88 mcg PO DAILYBB [facility] Stop: 01/22/19 06:29 Last Admin: 12/25/18 05:34 Dose: 88 mcg Documented by: [id number] Admin: 12/24/18 05:53 Dose: 88 mcg Documented by: [id number] Admin: 12/23/18 05:49 Dose: 88 mcg Documented by: [id number] Multivitamins/Minerals (Caltrate Plus) 1 tab PO BID [facility] Stop: 01/21/19 20:59 Last Admin: 12/25/18 20:59 Dose: 1 tab Documented by: [id number] Admin: 12/25/18 09:13 Dose: 1 tab Documented by: [id number] Admin: 12/24/18 21:04 Dose: 1 tab Documented by: [id number] Admin: 12/24/18 08:16 Dose: 1 tab Documented by: [id number] Admin: 12/23/18 19:49 Dose: 1 tab Documented by: [id number] Admin: 12/23/18 07:59 Dose: 1 tab Documented by: [id number] Admin: 12/22/18 23:15 Dose: 1 tab Documented by: [id number] Psyllium Hydrophilic Mucilloid (Metamucil) 1 pkt PO QPM [facility] Stop: 01/24/19 20:59 Last Admin: 12/25/18 20:26 Dose: Not Given Documented by: [id number] Tramadol HCl (Ultram) 50 mg PO Q6H PRN PRN Reason: Pain Stop: 01/21/19 17:19 Last Admin: 12/25/18 09:20 Dose: 50 mg Documented by: [id number] Admin: 12/24/18 17:30 Dose: 50 mg Documented by: [id number] Admin: 12/23/18 18:12 Dose: 50 mg Documented by: [id number] Admin: 12/23/18 07:58 Dose: 50 mg Documented by: [id number] Discontinued Medications Amlodipine Besylate (Norvasc) 2.5 mg PO DAILY [facility] Stop: 01/22/19 08:59 Last Admin: 12/23/18 08:00 Dose: 2.5 mg Documented by: [id number] Amlodipine Besylate (Norvasc) 2.5 mg PO NOW ONE Stop: 12/25/18 16:16 Last Admin: 12/25/18 16:13 Dose: 2.5 mg Documented by: [id number] Cetirizine HCl (Zyrtec) 10 mg PO NOW ONE Stop: 12/24/18 10:45 Last Admin: 12/24/18 11:19 Dose: 5 mg Documented by: [id number] Acetaminophen (Ofirmev) 1,000 mg in 100 mls @ 400 mls/hr IV NOW STA Stop: 12/22/18 11:57 Last Infusion: 12/22/18 12:10 Dose: 0 mls/hr Documented by: [id number] Admin: 12/22/18 11:59 Dose: 400 mls/hr Documented by: [id number] Sodium Chloride (Nss) 500 mls @ 999 mls/hr IV .Q31M ONE Stop: 12/22/18 12:13 Last Infusion: 12/22/18 12:30 Dose: 0 mls/hr Documented by: [id number] Admin: 12/22/18 11:59 Dose: 999 mls/hr Documented by: [id number] Potassium Chloride (K Toribio / Wtr) 10 meq in 100 mls @ 100 mls/hr IV NOW STA Stop: 12/22/18 14:43 Last Infusion: 12/22/18 15:27 Dose: 0 mls/hr Documented by: [id number] Admin: 12/22/18 14:27 Dose: 100 mls/hr Documented by: [id number] Potassium Chloride (K Toribio / Wtr) 10 meq in 100 mls @ 100 mls/hr IV Q1H [facility] Stop: 12/22/18 19:04 Last Admin: 12/22/18 18:08 Dose: Not Given Documented by: [id number] Infusion: 12/22/18 18:07 Dose: 0 mls/hr Documented by: [id number] Admin: 12/22/18 17:50 Dose: 100 mls/hr Documented by: [id number] Potassium Chloride 40 meq/ (Sodium Chloride) 1,020 mls @ 100 mls/hr IV .[id number] [facility] Stop: 12/23/18 12:28 Last Infusion: 12/22/18 21:25 Dose: 0 mls/hr Documented by: [id number] Admin: 12/22/18 17:49 Dose: 100 mls/hr Documented by: [id number] Sodium Chloride (Nss 1000ml) 1,000 mls @ 80 mls/hr IV .[id number] [facility] Stop: 12/23/18 20:14 Last Infusion: 12/23/18 20:29 Dose: 0 mls/hr Documented by: [id number] Admin: 12/23/18 08:27 Dose: 80 mls/hr Documented by: [id number] Infusion: 12/23/18 08:19 Dose: 80 mls/hr Documented by: [id number] Admin: 12/22/18 19:49 Dose: 80 mls/hr Documented by: [id number] Methylnaltrexone [place] (Relistor) 12 mg SQ NOW ONE Stop: 12/25/18 15:01 Last Admin: 12/25/18 15:16 Dose: 12 mg Documented by: [id number] Potassium Chloride (Zee Ciel Elix) 40 meq PO ONE ONE Stop: 12/22/18 18:16 Last Admin: 12/22/18 19:48 Dose: 40 meq Documented by: [id number] Potassium Chloride (Zee Ciel Elix) 40 meq PO ONE ONE Stop: 12/22/18 23:01 Last Admin: 12/22/18 23:15 Dose: 40 meq Documented by: [id number] Potassium Chloride (Klor-Con M10) 40 meq PO NOW STA Stop: 12/25/18 11:11 Last Admin: 12/25/18 12:09 Dose: 40 meq Documented by: [id number] Description This is a 21 electrode EEG with a single channel dedicated to limited EKG. The electrodes were placed in accordance with the International 10-20 system. REPORT: At the onset of the EEG, the patient is awake. The background activity consists of 7-8 Hz, persistent, posteriorly dominant, moderate amplitude, symmetric and rhythmic activity that is reactive to eye opening. Anteriorly, it consists of a mixture of low voltage indeterminate activity and 15-25 Hz, persistent, low amplitude, symmetric and rhythmic activity. Stepwise intermittent photic stimulation does o not induce any abnormalities. Drowsiness is characterized by low amplitude mixed frequency activity, roving eye movements, and decreased eye blinking and muscle artifact. IMPRESSION: This is an abnormal awake and drowsy EEG due to mild generalized background slowing suggestive of a mild non specific encephalopathy. There is no evidence of epileptiform activity.
[2018-12-26] MEDS: LEVOTHYROXINE SODIUM 88 MCG TABLET PO SCH (06:04)
[2018-12-26] MEDS: D5W AND NSS 1,000 ML IV SCH ×2 (06:29→22:55)
[2018-12-26] MEDS ORDERED: POTASSIUM CHLORIDE 20 MEQ TABCR PO STA (08:59)
[2018-12-26] MEDS: TRAMADOL HCL 50 MG TABLET PO PRN ×2 (09:15→17:18)
[2018-12-26] MEDS ORDERED: BISACODYL 10 MG SUPP PR STA (09:16)
[2018-12-26] MEDS: GABAPENTIN 100 MG CAP PO SCH ×3 (09:17→21:38)
[2018-12-26] MEDS: ASPIRIN 81 MG ECTAB PO SCH (09:17)
[2018-12-26] MEDS: CALCIUM 600MG + VIT D 400 IU TAB PO SCH ×2 (09:17→21:38)
[2018-12-26] MEDS: AMLODIPINE BESYLATE 5 MG TAB PO SCH (09:34)
[2018-12-26] MEDS: POLYETHYLENE (MIRALAX) 17 GM PACK PO SCH (09:36)
--- NOTE | 2018-12-26 09:51 | Gastroenterology Progress Note ---
Date of Service December 26, 2018 Assessment & Plan (1) Constipation: Cause of mild ileus likely from Parkinson's Disease and med related: increased use of Tramadol with this admission. Also sinemet and calcium supplements and gabapentin all cause constipation. The pt also has Celiac Disease and daughter reports that this incidental gluten intake causes constipation in this pt. 1. Tap water enema, followed by Dulcolax suppository. 2. Miralax daily. 3. Will continue order for fiber supplement daily per pt's daughter's request. 4. Will add Dulcolax 5mg po daily, regularly, not prn. 5. No plans for endoscopy at this time. 6. OK to continue a low residue diet. If becomes firm with large distention then would DC po intake 7. Will continue to follow. Supervising Physician Co-Signing Physician Notes I have performed a history and physical examination of this patient and reviewed the electronic medical record. Specifically, on physical examination there is no abdominal tenderness. I have discussed the case with MARAH Serrato. The above note reflects my findings, conclusions, and recommendations. Jl Stone MD Subjective Ms. Germaine Fournier is an 83 yr old female with Parkinson's, GI consulted for ileus (most recent BM 12/22), has chronic constipation as well. Ileus is not severe on imaging and is likely related to Parkinson's and increased use of pain meds. Spoke with daughter who requested that her mom have fiber daily. Pt received one dose of Relistor yesterday without results. On exam abdomen remains soft, and BS are present, normoactive. Review of Systems Review of Systems: ROS: Gen: + weakness, No fevers, weight loss Resp: Nursing reports no pt c/o SOB, or cough Cardio: Denies palpitations/irregular beats, no chest pain GI: Daughter states that po intake has been good, nursing also reports good po intake. Pt specifically denies abdominal pain today. No vomiting : Denies pain on urination; Elizabeth in place Skin: No jaundice, itching or new rashes Physical Exam Constitutional: WD/WN, vitals as above + physical limitations (generally weak, assists minimally with being moved in bed.) Eyes: PERRL, conjunctivae normal, anicteric sclerae ENMT: external ear and nose normal, oropharynx normal Respiratory: normal respiratory effort, lungs clear to auscultation Cardiovascular: RRR, no murmur, no edema Gastrointestinal (Abdomen): Inspection/Auscultation: + abdomen distended (mildly) and normal bowel sounds Percussion/Palpation: abdomen soft; abdomen nontender Skin: no rashes, warm and dry Lymphatic: no cervical or axillary lymphadenopathy Results & Data Vital Signs (Past 12 Hours) Vital Signs Temp Pulse Resp BP Pulse Ox 12/26/18 07:00 36.7 C 88 17 147/79 H 96 12/26/18 03:49 36.7 C 87 16 121/64 95 12/26/18 00:00 36.8 C 92 H 18 116/62 96 Diagnostic Findings KUB 12/25/18: Mild nonobstructive ileus.
--- NOTE | 2018-12-26 12:34 | Palliative Care Progress Note ---
Date of Service December 26, 2018 Assessment & Plan (1) Goals of care, counseling/discussion: 83 year old female patient with PMH Parkinsonism, celiac disease, RLS, multiple TIAs, falls, hypothyroidism, CKD stage III, HLD and osteopenia, presented to the hospital on Monday with stroke-like symptoms. This patient just moved in with her daughter/POA, Arleth Lira, in June 2018. Prior to that, was living alone in [place], [place]. Patient has had several TIAs and presumed CVA at some point in the past, she was having frequent falls and increased difficult living alone thus moved in with her daughter. Arleth was doing okay taking care of patient until recently when her mother began having increased back pain. Records from [facility] indicate that patient had compression fracture of L4. Along with increased back pain, patient had left sided weakness and severe pain with any movement; so Arleth was having trouble changing patient and caring for her. Patient became bedbound, but only recently due to these new issues. Apparently there was also a questionable con vulsive episode, but patient did not want to seek medical treatment and did not want to come to the hospital. Patient's daughter contacted [facility] to try and get her mother some symptom relief, but they recommended patient come to the ED for evaluation, as she has not seen a provider since she moved here from [place]. In the ED, potassium 2.9, creatinine 1.42, albumin 2.5. Xrays revealed the old L4 fracture and nondisplaced rib fracture, CT head showed no acute disease but did show extensive small vessel disease and old bilateral cortical infarcts. MRI brain was completed which showed same findings as CT. Creatinine has improved to 0.67 with some IVF, GFR is now 81.9 (from 39.3 on admission). Neurology consulted. Patient was not on antiplatelet therapy prior to arrival, assuming due to frequent falls? Palliative care is now consulted to discuss goals of care and for hospice evaluation. -Met with patient in room 212. Patient initially declining participation in Pt/OT however, now would like to try participating in skilled service. Patient has been evaluated by PT/OT. -Patient does have advanced dementia, poor PO intake, albumin 2.5, and other comorbidities, and likely will do poorly with skilled services at [facility]; however, the family and patient would like to try SNF and transition to Hospice depending on how the patient progresses. -Case management is aware and has notified [facility]. (2) Stroke-like symptoms: (3) Back pain: (4) Parkinsons: Subjective Patient lying in bed today, opened eyes and stated that she was having some discomfort in her bottom. Patient denies any acute concerns. Patient has been less lethargic today and able/willing to participate with PT/OT, per daughters request. See A/P for further details. Review of Systems Review of Systems: + weakness (-) chest pain (-) SOB (+) irritation on digna area Constitutional: + weakness Genitourinary: + urinary incontinence Musculoskeletal: as per Subjective / HPI Results & Data Vital Signs (Past 12 Hours) Vital Signs Temp Pulse Resp BP Pulse Ox 12/26/18 11:44 37.1 C 93 H 20 153/88 H 97 12/26/18 07:00 36.7 C 88 17 147/79 H 96 12/26/18 03:49 36.7 C 87 16 121/64 95 PG Care Time/CCT Total # of Minutes Spent Total Time Spent with Patient: Total time spent is greater than 50% in co ordination of care (as documented) at patient's floor/unit and/or counseling patient: 25 Time Spent Midlevel Total time spent 25 minutes with > 50% of that time spent assessing the patient and discussing goals of care.
--- NOTE | 2018-12-26 12:54 | Hospitalist Progress Note ---
Date of Service December 26, 2018 Assessment & Plan (1) Left-sided weakness: LEFT SIDED WEAKNESS, ACUTE CVA RULED OUT Brain MRI: 1. No acute intracranial findings 2. No evidence of acute or subacute infarction 3. Extensive small vessel disease 4. 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 Has generalized weakness but no one extremity is weaker than others Still has significant lower extremity weakness-most likely from deconditioning, patient has not ambulated for 4 months as per the daughter Neurology consulted-appreciate input and recommendation PT/OT evaluation OLD CORTICAL INFARCTS ASA, Lipitor started Symptoms may be related to old stroke ILEUS Abdominal distention December 25, 2018 KUB x-ray: Positive mild ileus N.p.o. for now, IV fluids started GI consulted-appreciate input and recommendation Received 1 dose of Methylnaltrexone Dulcolax p.o. and Fleet enema LOW-GRADE FEVER Developed fever 37.9 December 25, 2018 No obvious signs of infection at this point Check urinalysis, blood cultures, chest x-ray Monitor fever curve LEFT RIB FRACTURE Nondisplaced cortical fracture left ninth rib Incentive spirometry PRN analgesics PARKINSON DISEASE management as per #1 Continue Sinemet Appreciate neurology input and recommendation HYPERTENSION Resume usual amlodipine DVT Prophylaxis Lovenox DNR (2) Goals of care, counseling/discussion: Her overall condition has been deteriorating She has been bedbound for 4 months with contracture deformities involving the lower extremities Appreciate palliative care input and recommendation Likely to go to skilled care with hospice care Disposition pending will need to transition to SNF Subjective 12/26 The patient was seen and examined in telemetry unit Seems an 83-year-old female significant past medical history of celiac disease, Parkinson's disease and history of CVA was admitted with left-sided weakness Apparently he has been bedbound for the last 4 months with contracture deformities of the lower extremities Today she complains to have some pain at the lower back Denies any chest pain, shortness of breath, abdominal pain, nausea and/or vomiting Review of Systems Review of Systems: All systems reviewed and are unremarkable except as noted below Constitutional: + weakness and + anorexia Musculoskeletal: + back pain (Without radiation) Neurologic: + generalized weakness and + confusion Physical Exam Physical Exam: Lying in bed comfortably Constitutional: WD/WN, vitals as above + physical limitations (generally weak, assists minimally with being moved in bed.) and + disheveled; no acute distress Eyes: PERRL, conjunctivae normal, anicteric sclerae ENMT: external ear and nose normal, oropharynx normal Neck: normal visual inspection Respiratory: normal respiratory effort; no respiratory distress Cardiovascular: RRR, no murmur, no edema Gastrointestinal (Abdomen): Inspection/Auscultation: abdomen normal to inspection, + abdomen distended (mildly but soft) and normal bowel sounds Percussion/Palpation: abdomen soft; abdomen nontender, no guarding and abdomen not rigid Musculoskeletal: Has flexor deformities involving the lower extremities Skin: no rashes, warm and dry Neurologic: moves all extremities (Minimal) and awake Alert and awake Psychiatric: Orientation: alert, oriented to person and oriented to place; + not oriented to time Insight: + limited insight Lymphatic: no cervical or axillary lymphadenopathy Results & Data Vital Signs (Past 12 Hours) Vital Signs Temp Pulse Resp BP Pulse Ox 12/26/18 11:44 37.1 C 93 H 20 153/88 H 97 12/26/18 07:00 36.7 C 88 17 147/79 H 96 12/26/18 03:49 36.7 C 87 16 121/64 95 Laboratory Results Urine 12/25/18 Range/Units 17:49 Urine Color Yellow Urine Appearance Turbid A (Clear) Urine pH 6.0 (4.5-7.5) Ur Specific [place] 1.018 (1.000-1.030) Urine Protein Trace H (Negative) Urine Glucose (UA) Negative (Negative) Medications Administered Current Inpatient Medications Acetaminophen (Tylenol) 650 mg PO Q4H PRN PRN Reason: Pain or Fever Stop: 01/21/19 16:04 Last Admin: 12/24/18 15:07 Dose: 650 mg Documented by: Amlodipine Besylate (Norvasc) 2.5 [facility] Stop: 01/25/19 08:59 Last Admin: 12/26/18 09:34 Dose: 2.5 mg Documented by: Aspirin (Ecotrin Ectab) 81 mg PO DAILY [facility] Stop: 01/23/19 13:59 Last Admin: 12/26/18 09:17 Dose: 81 mg Documented by: Atorvastatin Calcium (Lipitor) 40 mg PO HS [facility] Stop: 01/23/19 20:59 Last Admin: 12/25/18 20:59 Dose: 40 mg Documented by: Bisacodyl (Dulcolax) 5 mg PO DAILY [facility] Stop: 01/26/19 08:59 Carbidopa/Levodopa (Sinemet 25/100 Mg) 1 tab PO BID [facility] Stop: 01/21/19 20:59 Cetirizine HCl (Zyrtec) 10 mg PO DAILY PRN PRN Reason: Itching Stop: 01/24/19 08:59 Enoxaparin Sodium (Lovenox) 40 mg SQ Q24H [facility] Stop: 01/21/19 16:29 Last Admin: 12/25/18 16:10 Dose: 40 mg Documented by: Gabapentin (Neurontin) 100 mg PO TID [facility] Stop: 01/21/19 20:59 Last Admin: 12/26/18 09:17 Dose: 100 mg Documented by: Gadobutrol (Gadavist 7.5ml) 6 ml IV ONCE PRN PRN Reason: Interaction Checking Stop: 12/26/18 17:27 Last Admin: 12/22/18 17:29 Dose: 6 ml Documented by: Dextrose/Sodium Chloride (D5w And Nss) 1,000 mls @ 60 mls/hr IV .[id number] [facility] Stop: 01/24/19 13:29 Last Admin: 12/26/18 06:29 Dose: 60 mls/hr Documented by: Ceftriaxone Sodium 2,000 mg/ (Dextrose) 70 mls @ 100 mls/hr IV DAILY@1900 [facility]; Protocol Stop: 12/30/18 18:59 Last Infusion: 12/25/18 19:55 Dose: Infused Documented by: Levothyroxine Sodium (Synthroid) 88 mcg PO DAILYBB [facility] Stop: 01/22/19 06:29 Last Admin: 12/26/18 06:04 Dose: 88 mcg Documented by: Lorazepam (Ativan) 0.5 mg PO Q8H PRN PRN Reason: Anxiety Stop: 01/21/19 18:57 Miscellaneous Information (Pharmacist Discharge Med Rec Consult) 1 ea N/A UD PRN PRN Reason: Consult Stop: 01/21/19 16:04 Multivitamins/Minerals (Caltrate Plus) 1 tab PO BID [facility] Stop: 01/21/19 20:59 Last Admin: 12/26/18 09:17 Dose: 1 tab Documented by: Polyethylene Glycol (Miralax Powder Packet) 17 gm PO DAILY [facility] Stop: 01/25/19 08:59 Last Admin: 12/26/18 09:36 Dose: 17 gm Documented by: Psyllium Hydrophilic Mucilloid (Metamucil) 1 pkt PO QPM [facility] Stop: 01/24/19 20:59 Last Admin: 12/25/18 20:26 Dose: Not Given Documented by: Tramadol HCl (Ultram) 50 mg PO Q6H PRN PRN Reason: Pain Stop: 01/21/19 17:19 Last Admin: 12/26/18 09:15 Dose: 50 mg Documented by:
[2018-12-26] MEDS: SENNA 8.6 MG TAB PO SCH (14:05)
--- NOTE | 2018-12-26 14:33 | Neurology Progress Note ---
Date of Service December 26, 2018 Assessment & Plan (1) Left-sided weakness: 1. MRI brain negative for acute stroke 2. dementia- appears to be at baseline 3. some previous med records scanned into chart- would be helpful to have PCP records and more recent records 4. continue Sinemet 25/100 mg BID for now 5. continue medical management per primary service 6. palliative medicine involved - rehab planned and then transition to hospice if no improvement 7. right wrist drop may be injury from fall - usually resolves on own Results & Data Vital Signs (Past 12 Hours) Vital Signs Temp Pulse Pulse Resp BP Pulse Ox 12/26/18 11:44 37.1 C 93 H 20 153/88 H 97 12/26/18 09:00 86 12/26/18 07:00 36.7 C 88 17 147/79 H 96 12/26/18 03:49 36.7 C 87 16 121/64 95
[2018-12-26] MEDS: ENOXAPARIN INJ 40 MG/0.4 ML SYR SQ SCH (17:19)
[2018-12-26] MEDS: cefTRIAXone SODIUM 2,000 MG in DEXTROSE 5% 50 ML IV SCH (18:47)
[2018-12-26] MEDS: ATORVASTATIN 40 MG TAB PO SCH (21:37)
[2018-12-26] MEDS: PSYLLIUM 58.6% POWDER PACKET PO SCH (21:38)
[2018-12-27] MEDS: LEVOTHYROXINE SODIUM 88 MCG TABLET PO SCH (06:21)
--- NOTE | 2018-12-27 07:23 | XRay Report ---
XR KUB/Abdomen 1 view CLINICAL HISTORY: colonic ileus - please measure max diameter COMPARISON STUDY: No previous studies for comparison. FINDINGS: There is mild gaseous prominence of the left:. The maximal colonic diameter 6 cm uncorrecte d for magnification. There are no findings to indicate bowel obstruction. There are multiple nonspeci fic pelvic basin calcifications. There are surgical clips within the right upper quadrant consistent with a prior cholecystectomy. IMPRESSION: Mild gaseous prominence of the left colon. No conventional radiographic evidence of steve l obstruction Electronically signed by: Dontrell Balderas M.D. 12/27/2018 7:22 AM
[2018-12-27] MEDS: GABAPENTIN 100 MG CAP PO SCH ×3 (08:22→21:30)
[2018-12-27] MEDS: CALCIUM 600MG + VIT D 400 IU TAB PO SCH (08:22)
[2018-12-27] MEDS: POLYETHYLENE (MIRALAX) 17 GM PACK PO SCH (08:22)
[2018-12-27] MEDS: AMLODIPINE BESYLATE 5 MG TAB PO SCH (08:23)
[2018-12-27] MEDS: SENNA 8.6 MG TAB PO SCH (08:23)
[2018-12-27] MEDS: ASPIRIN 81 MG ECTAB PO SCH (08:23)
[2018-12-27] MEDS ORDERED: BISACODYL 5 MG TABEC PO SCH (09:00)
[2018-12-27] MEDS ORDERED: BISACODYL 10 MG SUPP PR STA (10:15)
--- NOTE | 2018-12-27 10:15 | Gastroenterology Progress Note ---
Date of Service December 27, 2018 Assessment & Plan (1) Constipation: Cause of mild ileus likely from Parkinson's Disease and med related: increased use of Tramadol with this admission. Also Sinemet,and calcium supplements, and gabapentin can all cause constipation. The pt also has Celiac Disease and daughter reports that this incidental gluten intake causes constipation. 1. Repeat tap water enema, followed by Dulcolax suppository. 2. Cont Miralax daily. 3. Repeat Relistor once 4. Continue Senna Q HS. Could increase to BID if needed. 5. No indication for colonoscopic decompression at this time. And constipation should not preclude placement. 6. OK to continue a low residue diet. 7. GI will sign off. Please notify us if new/worsened GI issues. Subjective Ms. Germaine Fournier is an 83 yr old female admitted for weakness, awaiting placement. Has Parkinson's, Celiac disease, prior CVA. GI consulted for ileus. Current Bowel Regime: Received Relistor on 12/25, Senna QHS starting last night, Miralax daily. Eating well. Denies any abdomen pain. X-ray this morning with mild ileus, max colon diameter 6cm. Review of Systems Review of Systems: ROS: Gen: + weakness, No fevers, weight loss Resp: Nursing reports no pt c/o SOB, or cough Cardio: Denies palpitations/irregular beats, no chest pain GI: Daughter states that po intake has been good, nursing also reports good po intake. Pt specifically denies abdominal pain today. No vomiting : Denies pain on urination; Elizabeth in place Skin: No jaundice, itching or new rashes Physical Exam Constitutional: WD/WN, vitals as above + physical limitations (generally weak, assists minimally with being moved in bed.) Eyes: PERRL, conjunctivae normal, anicteric sclerae ENMT: external ear and nose normal, oropharynx normal Respiratory: normal respiratory effort, lungs clear to auscultation Cardiovascular: Rate/Rhythm: + irregularly irregular Heart Sounds: + murmur (2-3/6 loudest at the right sternal border.) Vessels: no JVD Gastrointestinal (Abdomen): Inspection/Auscultation: normal bowel sounds (acitve, but not tympanic BS); abdomen not distended (mildly) Percussion/Palpation: abdomen soft; abdomen nontender Skin: no rashes, warm and dry Lymphatic: no cervical or axillary lymphadenopathy Results & Data Vital Signs (Past 12 Hours) Vital Signs Temp Pulse Pulse Resp BP Pulse Ox 12/27/18 08:00 86 12/27/18 07:08 36.7 C 96 H 17 177/83 H 97 12/27/18 04:00 36.6 C 98 H 17 133/73 92 12/27/18 00:00 36.7 C 99 H 17 142/81 H 96
--- NOTE | 2018-12-27 12:36 | Palliative Care Progress Note ---
Date of Service December 27, 2018 Assessment & Plan (1) Goals of care, counseling/discussion: -Patient c/o mild abdominal pain and constipation today. Did have a loose stool after enema last evening. Had another enema today- no bowel movement yet. -Patient continues to struggle with this nonobstructive ileus. I spoke to her daughter, Arleth, this morning. Arleth states that patient has chronic bowel issues. Has severe celiac's disease, is very sensitive to medications as well. Tramadol was on patient's medication profile, but patient in reality was really not taking the Tramadol due to constipation issues. Patient was taking Motrin and Tylenol as needed. Patient has been moving bowels every two weeks at home. I did pass this information along to Dr. Vale. -Would recommend discontinuing the Tramadol and adding lidocaine patch to lower back/lumbar area. Continue Tylenol as needed for pain. Again today, patient states that her back pain really isn't an issue until she is moving or being turned/repositioned in bed. -Plan at this time is for patient to go to [facility] with hospice care upon discharge. -Please contact palliative care with any further needs. (2) Stroke-like symptoms: (3) Back pain: (4) Parkinsons: Subjective Patient has mild abdominal pain and constipation today. NO back pain while lying fat/still. Spoke to daughter on phone. See A&P. Review of Systems Ear, Nose, Mouth, Throat: no dysphagia Respiratory: no cough and no dyspnea Cardiovascular: no chest pain Gastrointestinal: + abdominal pain and + constipation; no nausea and no vomiting Psychiatric: no anxiety Physical Exam Constitutional: no acute distress ENMT: external ear and nose normal, oropharynx normal Neck: normal visual inspection Respiratory: normal respiratory effort, lungs clear to auscultation Cardiovascular: RRR, no murmur, no edema Vessels: dorsalis pedis pulses present Gastrointestinal (Abdomen): Inspection/Auscultation: normal bowel sounds Neurologic: moves all extremities and awake Psychiatric: Orientation: alert, oriented to person and oriented to place; + not oriented to time Insight: + limited insight Results & Data Vital Signs (Past 12 Hours) Vital Signs Temp Pulse Pulse Resp BP Pulse Ox 12/27/18 11:50 36.8 C 103 H 24 136/77 97 12/27/18 08:00 86 12/27/18 07:08 36.7 C 96 H 17 177/83 H 97 12/27/18 04:00 36.6 C 98 H 17 133/73 92 Time Spent Midlevel 35 minutes with >50% of the time spent at bedside with patient and family discussing POC.
[2018-12-27] MEDS: D5W AND NSS 1,000 ML IV SCH (13:58)
[2018-12-27] MEDS ORDERED: METHYLNALTREXONE BROMIDE 12 MG/0.6 ML VIAL SQ ONE (15:14)
--- NOTE | 2018-12-27 15:14 | Hospitalist Progress Note ---
Date of Service December 27, 2018 Assessment & Plan (1) Left-sided weakness: LEFT SIDED WEAKNESS, ACUTE CVA RULED OUT Brain MRI: 1. No acute intracranial findings 2. No evidence of acute or subacute infarction 3. Extensive small vessel disease 4. 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 Has generalized weakness but no one extremity is weaker than others Still has significant lower extremity weakness-most likely from deconditioning, patient has not ambulated for 4 months as per the daughter Neurology consulted-appreciate input and recommendation Like to be transferred to [facility] with hospice tomorrow OLD CORTICAL INFARCTS ASA, Lipitor started Symptoms may be related to old stroke ILEUS Abdominal distention December 25, 2018 KUB x-ray: Positive mild ileus N.p.o. for now, IV fluids started GI consulted-appreciate input and recommendation Received 1 dose of Methylnaltrexone Dulcolax p.o. and Fleet enema Will have another dose of methylnaltrexone today and has been getting already stool softener If she remains asymptomatic she will be transferred to [facility] with hospice tomorrow LOW-GRADE FEVER Developed fever 37.9 December 25, 2018 No obvious signs of infection at this point Check urinalysis, blood cultures, chest x-ray Monitor fever curve LEFT RIB FRACTURE Nondisplaced cortical fracture left ninth rib Incentive spirometry PRN analgesics PARKINSON DISEASE management as per #1 Continue Sinemet Appreciate neurology input and recommendation HYPERTENSION Resume usual amlodipine DVT Prophylaxis Lovenox DNR (2) Goals of care, counseling/discussion: Her overall condition has been deteriorating She has been bedbound for 4 months with contracture deformities involving the lower extremities Appreciate palliative care input and recommendation Likely to go to skilled care with hospice care tomorrow Disposition pending will need to transition to SNF Subjective 12/26 The patient was seen and examined in telemetry unit Seems an 83-year-old female significant past medical history of celiac disease, Parkinson's disease and history of CVA was admitted with left-sided weakness Apparently he has been bedbound for the last 4 months with contracture deformities of the lower extremities Today she complains to have some pain at the lower back Denies any chest pain, shortness of breath, abdominal pain, nausea and/or vomiting 12/27 The patient was seen and examined during She has been stable but did not move her bowels At the time he is slightly distended and more pain in the back Denies any nausea and vomiting Review of Systems Review of Systems: All systems reviewed and are unremarkable except as noted below Constitutional: + weakness and + anorexia Musculoskeletal: + back pain (Without radiation) Neurologic: + generalized weakness and + confusion Physical Exam Physical Exam: Lying in bed comfortably Constitutional: + physical limitations (generally weak, assists minimally with being moved in bed.) and + disheveled; no acute distress and not ill appearing Eyes: PERRL, conjunctivae normal, anicteric sclerae ENMT: external ear and nose normal, oropharynx normal Neck: normal visual inspection Respiratory: normal respiratory effort; no respiratory distress Auscultation: + diminished lung sounds (Bilaterally due to poor effort) Cardiovascular: Rate/Rhythm: regular rate and regular rhythm Gastrointestinal (Abdomen): Inspection/Auscultation: abdomen normal to inspection, + abdomen distended (mildly but soft) and normal bowel sounds Percussion/Palpation: abdomen soft; abdomen nontender, no guarding and abdomen not rigid Musculoskeletal: Has flexure deformity involving the lower extremities Skin: no rashes, warm and dry Neurologic: moves all extremities (Minimal) and awake Alert and awake. Generally very weak and lethargic Psychiatric: Orientation: alert, oriented to person and oriented to place; + not oriented to time Insight: + limited insight Lymphatic: no cervical or axillary lymphadenopathy Results & Data Vital Signs (Past 12 Hours) Vital Signs Temp Pulse Pulse Resp BP Pulse Ox 12/27/18 11:50 36.8 C 103 H 24 136/77 97 12/27/18 08:00 86 12/27/18 07:08 36.7 C 96 H 17 177/83 H 97 12/27/18 04:00 36.6 C 98 H 17 133/73 92 Medications Administered Current Inpatient Medications Acetaminophen (Tylenol) 650 mg PO Q4H PRN PRN Reason: Pain or Fever Stop: 01/21/19 16:04 Last Admin: 12/24/18 15:07 Dose: 650 mg Documented by: Amlodipine Besylate (Norvasc) 2.5 mg PO QAM [facility] Stop: 01/25/19 08:59 Last Admin: 12/27/18 08:23 Dose: 2.5 mg Documented by: Aspirin (Ecotrin Ectab) 81 mg PO DAILY [facility] Stop: 01/23/19 13:59 Last Admin: 12/27/18 08:23 Dose: 81 mg Documented by: Atorvastatin Calcium (Lipitor) 40 mg PO HS [facility] Stop: 01/23/19 20:59 Last Admin: 12/26/18 21:37 Dose: 40 mg Documented by: Carbidopa/Levodopa (Sinemet 25/100 Mg) 1 tab PO BID [facility] Stop: 01/21/19 20:59 Cetirizine HCl (Zyrtec) 10 mg PO DAILY PRN PRN Reason: Itching Stop: 01/24/19 08:59 Enoxaparin Sodium (Lovenox) 40 mg SQ Q24H [facility] Stop: 01/21/19 16:29 Last Admin: 12/26/18 17:19 Dose: 40 mg Documented by: Gabapentin (Neurontin) 100 mg PO TID [facility] Stop: 01/21/19 20:59 Last Admin: 12/27/18 13:59 Dose: 100 mg Documented by: Dextrose/Sodium Chloride (D5w And Nss) 1,000 mls @ 60 mls/hr IV .[id number] [facility] Stop: 01/24/19 13:29 Last Admin: 12/27/18 13:58 Dose: 60 mls/hr Documented by: Ceftriaxone Sodium 2,000 mg/ (Dextrose) 70 mls @ 100 mls/hr IV DAILY@1900 [facility]; Protocol Stop: 12/30/18 18:59 Last Infusion: 12/26/18 19:29 Dose: Infused Documented by: Levothyroxine Sodium (Synthroid) 88 mcg PO DAILYBB [facility] Stop: 01/22/19 06:29 Last Admin: 12/27/18 06:21 Dose: 88 mcg Documented by: Lorazepam (Ativan) 0.5 mg PO Q8H PRN PRN Reason: Anxiety Stop: 01/21/19 18:57 Polyethylene Glycol (Miralax Powder Packet) 17 gm PO DAILY [facility] Stop: 01/25/19 08:59 Last Admin: 12/27/18 08:22 Dose: 17 gm Documented by: Psyllium Hydrophilic Mucilloid (Metamucil) 1 pkt PO QPM [facility] Stop: 01/24/19 20:59 Last Admin: 12/26/18 21:38 Dose: 1 pkt Documented by: Sennosides (Senokot) 17.2 mg PO QAM [facility] Stop: 01/25/19 13:59 Last Admin: 12/27/18 08:23 Dose: 17.2 mg Documented by:
[2018-12-27] MEDS: ENOXAPARIN INJ 40 MG/0.4 ML SYR SQ SCH (16:35)
[2018-12-27] MEDS: ACETAMINOPHEN 325 MG TAB PO PRN (17:18)
[2018-12-27] MEDS: cefTRIAXone SODIUM 2,000 MG in DEXTROSE 5% 50 ML IV SCH (21:27)
[2018-12-27] MEDS: PSYLLIUM 58.6% POWDER PACKET PO SCH (21:30)
[2018-12-27] MEDS: ATORVASTATIN 40 MG TAB PO SCH (21:30)
[2018-12-27] MEDS: CARBIDOPA/LEVODOPA 25/100MG TAB PO SCH (21:39)
[2018-12-28] MEDS: LEVOTHYROXINE SODIUM 88 MCG TABLET PO SCH (06:09)
[2018-12-28] MEDS: ACETAMINOPHEN 325 MG TAB PO PRN (07:44)
[2018-12-28] MEDS: D5W AND NSS 1,000 ML IV SCH (07:46)
[2018-12-28] MEDS: POLYETHYLENE (MIRALAX) 17 GM PACK PO SCH (07:47)
[2018-12-28] MEDS: ASPIRIN 81 MG ECTAB PO SCH (07:47)
[2018-12-28] MEDS: GABAPENTIN 100 MG CAP PO SCH (07:47)
[2018-12-28] MEDS: SENNA 8.6 MG TAB PO SCH (07:48)
[2018-12-28] MEDS: AMLODIPINE BESYLATE 5 MG TAB PO SCH (08:31)
[2018-12-28] MEDS ORDERED: LIDOCAINE 5% 1 PATCH TD SCH (10:00)
[2018-12-28] MEDS: CARBIDOPA/LEVODOPA 25/100MG TAB PO SCH (11:16)
--- NOTE | 2018-12-28 11:52 | Hospitalist Progress Note ---
Date of Service December 28, 2018 Assessment & Plan (1) Left-sided weakness: LEFT SIDED WEAKNESS, ACUTE CVA RULED OUT Brain MRI: 1. No acute intracranial findings 2. No evidence of acute or subacute infarction 3. Extensive small vessel disease 4. 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 Has generalized weakness but no one extremity is weaker than others Still has significant lower extremity weakness-most likely from deconditioning, patient has not ambulated for 4 months as per the daughter Neurology consulted-appreciate input and recommendation Like to be transferred to [facility] with hospice tomorrow Medically stable and can be transferred to [facility] OLD CORTICAL INFARCTS ASA, Lipitor started Symptoms may be related to old stroke ILEUS Abdominal distention December 25, 2018 [facility] x-ray: Positive mild ileus N.p.o. for now, IV fluids started GI consulted-appreciate input and recommendation Received 1 dose of Methylnaltrexone Dulcolax p.o. and Fleet enema Will have another dose of methylnaltrexone today and has been getting already stool softener If she remains asymptomatic she will be transferred to [facility] with hospice tomorrow LOW-GRADE FEVER Developed fever 37.9 December 25, 2018 No obvious signs of infection at this point Check urinalysis, blood cultures, chest x-ray Monitor fever curve LEFT RIB FRACTURE Nondisplaced cortical fracture left ninth rib Incentive spirometry PRN analgesics PARKINSON DISEASE management as per #1 Continue Sinemet Appreciate neurology input and recommendation HYPERTENSION Resume usual amlodipine DVT Prophylaxis Lovenox DNR (2) Goals of care, counseling/discussion: Her overall condition has been deteriorating She has been bedbound for 4 months with contracture deformities involving the lower extremities Appreciate palliative care input and recommendation She will be transferred to [facility] with hospice Disposition pending Discussed with the family members Subjective 12/26 The patient was seen and examined in telemetry unit Seems an 83-year-old female significant past medical history of celiac disease, Parkinson's disease and history of CVA was admitted with left-sided weakness Apparently he has been bedbound for the last 4 months with contracture deformities of the lower extremities Today she complains to have some pain at the lower back Denies any chest pain, shortness of breath, abdominal pain, nausea and/or vomiting 12/27 The patient was seen and examined during She has been stable but did not move her bowels At the time he is slightly distended and more pain in the back Denies any nausea and vomiting / The patient was seen and examined in medical floor She remains stable but weak Denies any complaints Review of Systems Review of Systems: All systems reviewed and are unremarkable except as noted below Constitutional: + weakness and + anorexia Musculoskeletal: + back pain (Without radiation) Neurologic: + generalized weakness and + confusion Physical Exam Physical Exam: Lying in bed comfortably Constitutional: WD/WN, vitals as above + physical limitations (generally w eak, assists minimally with being moved in bed.) and + disheveled; no acute distress and not ill appearing Eyes: PERRL, conjunctivae normal, anicteric sclerae ENMT: external ear and nose normal, oropharynx normal Neck: normal visual inspection Respiratory: normal respiratory effort; no respiratory distress Auscultation: + diminished lung sounds (Bilaterally due to poor effort) Cardiovascular: RRR, no murmur, no edema Rate/Rhythm: regular rate and regular rhythm Gastrointestinal (Abdomen): Inspection/Auscultation: abdomen normal to inspection, + abdomen distended (mildly but soft) and normal bowel sounds Percussion/Palpation: abdomen soft; abdomen nontender, no guarding and abdomen n ot rigid Skin: no rashes, warm and dry Neurologic: moves all extremities (Minimal) and awake Psychiatric: Orientation: alert, oriented to person and oriented to place; + not oriented to time Insight: + limited insight Lymphatic: no cervical or axillary lymphadenopathy Results & Data Vital Signs (Past 12 Hours) Vital Signs Temp Pulse Resp BP Pulse Ox 12/28/18 08:00 36.9 C 96 H 18 131/84 95
--- NOTE | 2018-12-29 07:53 | Discharge Summary ---
Date of Service December 29, 2018 Admission HPI Per Admitting Provider 83 year old female who presents to the ED with weakness. Patient is currently in the ED alone. According to ED documentation, patient lives with her daughter in the basement. A few days ago, patient developed stroke like symptoms with left sided weakness. An attempt was made to place the patient on hospice however that was unsuccessful. Nursing reports that when patient arrived to the ED, she was disheveled and was soiled. She had a diaper on that appeared to be days old. Patient is somewhat of a poor historian. She is mostly without complaint. She is unsure why she came to the hospital today. In the ED, CT head is negative for acute findings. K+ is 2.9, WBC 14K, creat 1.2, trop 0.052. EKG is without aute ST changes. Patient was given IVF, IV Tylenol, and potassium replacement. Dr. Lira attempted to call patient's daughter however was unable to reach her. Principal Diagnosis Generalized weakness-multiple comorbid conditions, Parkinson's disease, old s troke, hypertension, bedbound Discharge Exam Constitutional WD/WN, vitals as above + physical limitations (generally weak, assists minimally with being moved in bed.) and + disheveled; no acute distress and not ill appearing Eyes PERRL, conjunctivae normal, anicteric sclerae ENMT external ear and nose normal, oropharynx normal Neck normal visual inspection Respiratory normal respiratory effort; no respiratory distress Auscultation: + diminished lung sounds (Bilaterally due to poor effort) Cardiovascular RRR, no murmur, no edema Rate/Rhythm: regular rate and regular rhythm Gastrointestinal (Abdomen) Inspection/Auscultation: abdomen normal to inspection, + abdomen distended (mildly but soft) and normal bowel sounds Percussion/Palpation: abdomen soft; abdomen nontender, no guarding and abdomen not rigid Skin no rashes, warm and dry Neurologic moves all extremities (Minimal) and awake Psychiatric Orientation: alert, oriented to person and oriented to place; + not oriented to time Insight: + limited insight Lymphatic no cervical or axillary lymphadenopathy Discharge Data Allergies Allergy/AdvReac Type Severity Reaction Status Date / Time Tetracyclines Allergy Unknown Verified 12/22/18 19:02 Consultations 12/22/18 13:44 ED Decision to Admit Stat 12/22/18 16:05 Consult Case Management - Discharge Planning Routine Consult Neurology Routine Consult Palliative Care Routine 12/22/18 22:00 Consult Health Information Management Routine 12/22/18 22:02 Consult Health Information Management Routine 12/25/18 13:20 Consult Gastroenterology Routine Ordered Studies 12/22/18 12:59 CT head/brain wo con Stat 12/22/18 16:05 MR brain wo/w con Routine US carotid doppler BI Routine Hospital Course (1) Left-sided weakness: LEFT SIDED WEAKNESS, ACUTE CVA RULED OUT Brain MRI: 1. No acute intracranial findings 2. No evidence of acute or subacute infarction 3. Extensive small vessel disease 4. 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 Has generalized weakness but no one extremity is weaker than others Still has significant lower extremity weakness-most likely from deconditioning, patient has not ambulated for 4 months as per the daughter Neurology consulted-appreciate input and recommendation Like to be transferred to [facility] with hospice tomorrow Medically stable and can be transferred to [facility] OLD CORTICAL INFARCTS ASA, Lipitor started Symptoms may be related to old stroke ILEUS Abdominal distention December 25, 2018 [facility] x-ray: Positive mild ileus N.p.o. for now, IV fluids started GI consulted-appreciate input and recommendation Received 1 dose of Methylnaltrexone Dulcolax p.o. and Fleet enema Will have another dose of methylnaltrexone today and has been getting already stool softener If she remains asymptomatic she will be transferred to [facility] with hospice tomorrow LOW-GRADE FEVER Developed fever 37.9 December 25, 2018 No obvious signs of infection at this point Check urinalysis, blood cultures, chest x-ray Monitor fever curve LEFT RIB FRACTURE Nondisplaced cortical fracture left ninth rib Incentive spirometry PRN analgesics PARKINSON DISEASE management as per #1 Continue Sinemet Appreciate neurology input and recommendation HYPERTENSION Resume usual amlodipine DVT Prophylaxis Lovenox DNR (2) Goals of care, counseling/discussion: Her overall condition has been deteriorating She has been bedbound for 4 months with contracture deformities involving the lower extremities Appreciate palliative care input and recommendation She will be transferred to [facility] with hospice Disposition pending Discussed with the family members Total Time Total Time Spent Total Time Spent (In Minutes): 35 minutes Total Time Includes: Examination of the Patient, Discharge Planning, Medication Reconciliation and Communication With Other Providers Discharge Plan Discharge Items Patient Disposition: Transfer Snf Fac Reason For Visit: WEAKNESS Discharge Diagnosis: Generalized weakness-multiple comorbid conditions, Parkinson's disease, old stroke, hypertension, bedbound Condition: Fair Discharge Goals: Decrease discomfort Activity: As commented below Activity Comment: Mostly bedbound, requires assistance with ADL S Non-emergency contact: Primary Care Provider Call non-emergency contact if: you have any medication questions and your symptoms worsen Follow-up/Referrals: Destini Slade DO [Primary Care Provider] - (As per hospice service) Diet: Regular Diet Texture: Dental soft (bite-sized) Addtl Provider Instructions: Please take precaution to avoid fall. Keep comfortable Prescriptions: New atorvastatin 40 mg Tablet 40 mg PO HS 30 Days Qty: 30 RF: 0 sennosides [Senokot] 8.6 mg Tablet 17.2 mg PO QAM 30 Days Qty: 60 RF: 0 polyethylene glycol 3350 [Miralax] 17 gram Powder In Packet 17 g PO DAILY 30 Days Qty: 30 RF: 0 cetirizine 10 mg Tablet 10 mg PO DAILY PRN (Reason: allergy symptoms) 30 Days Qty: 30 RF: 0 aspirin [Ecotrin Low Strength] 81 mg Tablet,Delayed Release (Dr/Ec) 81 mg PO DAILY 30 Days Qty: 30 RF: 0 lidocaine 5 % Adhesive Patch,Medicated 1 patch transdermal QAM 30 Days Qty: 30 RF: 0 Konsyl Sugar-Free 6 gram Powder In Packet 1 pkg PO QPM 30 Days Qty: 30 RF: 0 Continued gabapentin 100 mg Capsule 100 mg PO TID RF: 0 carbidopa-levodopa 25-100 mg Tablet 1 tab PO BID RF: 0 amlodipine 2.5 mg Tablet 2.5 mg PO DAILY RF: 0 levothyroxine [Synthroid] 88 mcg Tablet 88 mcg PO DAILY RF: 0 acetaminophen 500 mg Tablet 500 mg PO BID PRN (Reason: Pain) RF: 0 Discontinued tramadol 50 mg Tablet 50 mg PO Q6H PRN (Reason: Pain) RF: 0 lorazepam 1 mg Tablet 1 mg PO TID PRN (Reason: Anxiety) RF: 0 magnesium oxide 500 mg Tablet 500 mg PO DAILY RF: 0 Calcium 600 + D(3) 1 ea PO BID RF: 0 Stand-Alone Forms: [facility] Discharge Orders: Discharge Order (Routine); Ordered 12/28/18 Ordered By: Sally Vale Admission Data Admit Date/Time: 12/22/18 14:23 Attending Provider: Sally Vale Admit Provider: Beti Lira Primary Care Provider: Destini Slade Other Providers: Britton Cabrales ; Beti Lira ; Val Buitrago ; Deepika Florentino ; Jl Stone Service: Medical Other Interventions: Discharge Summary Assessment (RN) Last Done: 12/28/18 11:29 Pending Studies at Discharge: No DC Date/Time DO NOT enter until pt leaves facility: 12/28/18 12:15
== END 2018-12-28 12:15 | disposition hospice, inpatient (51) | DRG 57 ==
LOC: ED 11:00 → SUATTDRO 14:23 → 2E 14:23 → 4W 12-27 15:30